=== PATIENT | male | born 1950 ===

== ENCOUNTER 2017-11-01 22:41 | Inpatient (IN) ==
--- NOTE | 2017-11-01 22:54 | Emergency Department Note ---
Disposition Clinical Impression: Sepsis Qualifiers: Sepsis type: sepsis due to unspecified organism Qualified Code(s): A41.9 - Sepsis, unspecified organism Disposition: Admitted As Inpatient Condition: Fair [facility]: [facility]Primary Care Provider[facility] - General Adult HPI - General Stated complaint: Septic Time Seen by Provider: 11/01/17 22:47 Nursing Notes Reviewed: Yes Vital Signs Reviewed: Yes - History of Present Illness HPI Narrative: Mr. Giles, a 67-year-old male, presents from the [facility] inpatient worsening physician is concerned about hypothermia and mental status changes. 3 hours prior to arrival, patient was in normal mentation. On reexamination at the [facility], he was scribed is nonverbal, somnolent, rectal temperature of 92. Sitting physician noted he is unable to perform any lab work and is concerned about patient's overall status. - Related Data Home Medications Medication Instructions Recorded Confirmed Adults 50+ Multivitamin Tablet PO DAILY 11/02/17 Alendronate Sodium 70 mg PO QWEEK 11/02/17 11/02/17 Aspirin 81 mg PO DAILY 11/02/17 11/02/17 Atorvastatin 100 mg PO HS 11/02/17 11/02/17 Glucophage 500 mg PO BID 11/02/17 11/02/17 Insulin Glargine 20 units SQ HS 11/02/17 11/02/17 Lisinopril 10 mg PO DAILY 11/02/17 11/02/17 Magnesium Oxide 400 mg PO DAILY 11/02/17 11/02/17 Pantoprazole 40 mg PO DAILY 11/02/17 11/02/17 Prazosin 2 mg PO HS 11/02/17 11/02/17 Propranolol 20 mg PO BID 11/02/17 11/02/17 Quetiapine Fumarate 25 mg PO HS 11/02/17 11/02/17 Vitamin D 2,000 units PO DAILY 11/02/17 11/02/17 amLODIPine 10 mg PO DAILY 11/02/17 11/02/17 traZODone 75 mg PO HS 11/02/17 11/02/17 Allergies Allergy/AdvReac Type Severity Reaction Status Date / Time adhesive AdvReac Rash Verified 11/02/17 00:15 Limitations: ROS unobtainable due to patients medical condition Course Course Narrative: 22:50 ED [facility]: reason for respit care per AOD is that the patient's POA (daugher) "needed a break." Patient was slated for discharge home tomorrow. I took the physician to physican call from the inpatient [facility] physician. His concern was sepsis as the patient had a change in mentation and rectal temp of 92 deg. He was unable to perform any lab work at night thus the reason for transfer from [facility] inpatient to this ED. On arrival, patient is sleeping with open mouth. He was easily roused, is oriented to self. He has no complaints at this time. EKG dated 11/01/17 at 22:51 interpreted as sinus rhythm with a rate of 63. Prolonged ND of 249 ms; first-degree AV block. Otherwise normal intervals. Normal axis. Nonspecific ST-T changes. Compared to previous dated 05/05/2007 show no acute ischemic changes or comparison. Chart check for the [facility]: Aspiration precaution, history dysphagia on pureed and honey thick liquids. Medications given by crush and swallow applesauce bolus. Next History MRSA per cultures of [facility] on 03/05/17 per [facility]. 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 [phone] Patient symmetry improving on the Amina hugger. His mentation has improved; he is asking for Tylenol for his leg pain which is chronic. Patient has no leukocytosis or leukocytopenia. Urinalysis was a Whitfield catheter drawn sample; large leukocyte esterase with many WBC. Will empirocally cover for UTI. Patient re-assess after his temperature improved and he was more able to answer questions. His abdominal pain is diffuse, most prominent in LUQ and LLQ. Stool culture pending. We will CT abdomen and pelvis without contrast. I discussed the patient with the admitting hospitalist, Dr. Lawrence. She agrees to accept the patient with CT abdomen and pelvis without contrast pending. I attempted to call the patient's niece; no answer at the provided phone number. She is aware the patient is here however a posterior and update her. Patient's code status is not clear from [facility] documentation. Vital Signs Temperature 91.6 F L 11/01/17 22:42 Pulse Rate 71 11/01/17 22:42 Respiratory Rate 16 11/01/17 22:42 Blood Pressure 124/99 11/01/17 22:42 O2 Sat by Pulse Oximetry 95 11/01/17 22:42 Temperature 93.3 F L 11/02/17 01:14 Pulse Rate 73 11/02/17 02:00 Respiratory Rate 20 11/02/17 02:00 Blood Pressure 118/65 11/02/17 02:00 O2 Sat by Pulse Oximetry 96 11/02/17 02:00 Oxygen Delivery Oxygen Delivery Room Air Medical Decision Making - Lab Data Result diagrams: 11/01/17 22:57 11/01/17 22:57 Lab Results 11/01/17 11/01/17 11/01/17 Range/Units 22:57 22:57 22:57 WBC 5.4 (4.3-11.1) K/mcL RBC 3.29 L (4.19-5.50) M/mcL Hgb 9.7 L (12.9-16.9) g/dL Hct 30.4 L (37.5-50.1) % MCV 92.4 (83.0-100.0) fL MCH 29.5 (28.0-33.3) pg MCHC 31.9 (31.6-35.5) g/dL RDW 16.7 H (11.5-14.5) % Plt Count 69 L (140-400) K/mcL MPV 10.7 (9.4-12.4) fL Immature Gran % 0.2 (0-4) % Seg Neutrophils % 64.4 % Lymphocytes % 25.0 % Monocytes % 8.5 % Eosinophils % 1.7 % Basophils % 0.2 % Neutrophils # 3.5 (1.6-8.9) K/mcL Lymphocytes # 1.4 (0.6-4.6) K/mcL Monocytes # 0.5 (0.0-1.3) K/mcL Eosinophils # 0.1 (0.0-0.6) K/mcL Basophils # 0.0 (0.0-0.2) K/mcL Sodium 142 (136-145) mEq/L Potassium 5.4 H (3.5-5.1) mEq/L Chloride 110 H (98-107) mEq/L Carbon Dioxide 25 (23-29) mEq/L BUN 42 H (8-23) mg/dL Creatinine 1.28 (0.70-1.30) mg/dL Est GFR ( Amer) > 60 (> 60) Est GFR (Non-Af Amer) 56 L (> 60) BUN/Creatinine Ratio 33 H (6-26) Glucose 179 H (70-105) mg/dL Calculated Osmolality 309 H (280-300) Lactic Acid 1.4 (0.5-2.2) mmol/L Calcium 9.9 (8.6-10.3) mg/dL Phosphorus 3.8 (2.7-4.5) mg/dL Magnesium 2.0 (1.6-2.6) mg/dL Total Bilirubin 0.4 (0.3-1.0) mg/dL Direct Bilirubin 0.1 (0.0-0.2) mg/dL Indirect Bilirubin 0.3 (0.0-1.2) mg/dL AST 38 (13-39) Units/L ALT 37 (7-52) Units/L Alkaline Phosphatase 96 (34-104) Units/L Troponin I < 0.03 (< 0.04) ng/mL Serum Total Protein 7.2 (6.4-8.9) g/dL Albumin 3.9 (3.5-5.7) g/dL Globulin 3.3 (2.4-3.5) g/dL Albumin/Globulin Ratio 1.2 (1.1-2.2) Lipase 59 (11-82) Units/L Urine Color (Yellow) Urine Clarity (Clear) Urine pH (5.0-8.0) pH Units Ur Specific [place] (1.010-1.025) Urine Protein (Neg-Trace) mg/dL Urine Glucose (UA) (Normal) mg/dL Urine Ketones (Negative) mg/dL Urine Blood (Negative) Urine Nitrite (Negative) Urine Bilirubin (Negative) Urine Urobilinogen (Normal) mg/dL Ur Leukocyte Esterase (Negative) Urine Microscopic RBC (0-3) per hpf Urine Microscopic WBC (0-3) per hpf Ur Squamous Epith Cells (None-Few) per lpf Urine Bacteria (None-Few) per hpf Hyaline Casts (None-Few) per lpf Ur Culture Indicated? (NO) 11/01/17 Range/Units 23:08 WBC (4.3-11.1) K/mcL RBC (4.19-5.50) M/mcL Hgb (12.9-16.9) g/dL Hct (37.5-50.1) % MCV (83.0-100.0) fL MCH (28.0-33.3) pg MCHC (31.6-35.5) g/dL RDW (11.5-14.5) % Plt Count (140-400) K/mcL MPV (9.4-12.4) fL Immature Gran % (0-4) % Seg Neutrophils % % Lymphocytes % % Monocytes % % Eosinophils % % Basophils % % Neutrophils # (1.6-8.9) K/mcL Lymphocytes # (0.6-4.6) K/mcL Monocytes # (0.0-1.3) K/mcL Eosinophils # (0.0-0.6) K/mcL Basophils # (0.0-0.2) K/mcL Sodium (136-145) mEq/L Potassium (3.5-5.1) mEq/L Chloride (98-107) mEq/L Carbon Dioxide (23-29) mEq/L BUN (8-23) mg/dL Creatinine (0.70-1.30) mg/dL Est GFR ( Amer) (> 60) Est GFR (Non-Af Amer) (> 60) BUN/Creatinine Ratio (6-26) Glucose (70-105) mg/dL Calculated Osmolality (280-300) Lactic Acid (0.5-2.2) mmol/L Calcium (8.6-10.3) mg/dL Phosphorus (2.7-4.5) mg/dL Magnesium (1.6-2.6) mg/dL Total Bilirubin (0.3-1.0) mg/dL Direct Bilirubin (0.0-0.2) mg/dL Indirect Bilirubin (0.0-1.2) mg/dL AST (13-39) Units/L ALT (7-52) Units/L Alkaline Phosphatase (34-104) Units/L Troponin I (< 0.04) ng/mL Serum Total Protein (6.4-8.9) g/dL Albumin (3.5-5.7) g/dL Globulin (2.4-3.5) g/dL Albumin/Globulin Ratio (1.1-2.2) Lipase (11-82) Units/L Urine Color Yellow (Yellow) Urine Clarity Turbid A (Clear) Urine pH 6.5 (5.0-8.0) pH Units Ur Specific [place] 1.018 (1.010-1.025) Urine Protein Trace (Neg-Trace) mg/dL Urine Glucose (UA) Normal (Normal) mg/dL Urine Ketones Negative (Negative) mg/dL Urine Blood Small H (Negative) Urine Nitrite Negative (Negative) Urine Bilirubin Negative (Negative) Urine Urobilinogen Normal (Normal) mg/dL Ur Leukocyte Esterase Large H (Negative) Urine Microscopic RBC 5-15 H (0-3) per hpf Urine Microscopic WBC TNTC H (0-3) per hpf Ur Squamous Epith Cells None Seen (None-Few) per lpf Urine Bacteria Few (None-Few) per hpf Hyaline Casts None Seen (None-Few) per lpf Ur Culture Indicated? YES A (NO)
--- NOTE | 2017-11-01 23:09 | Emergency Department Note ---
Disposition Clinical Impression: Sepsis Qualifiers: Sepsis type: sepsis due to unspecified organism Qualified Code(s): A41.9 - Sepsis, unspecified organism Disposition: Admitted As Inpatient Condition: Fair [facility]errals: [facility] [Primary Care Provider[facility] - General Adult HPI - General Chief complaint: ED Weakness Stated complaint: Septic Time Seen by Provider: 11/01/17 22:47 Source: EMS Limitations: altered mental status - History of Present Illness Pain Scale: 0 Past Medical History - Past Medical History Medical history: Reports: dementia, diabetes, hepatitis, hyperlipidemia, hypertension Psychiatric history: Reports: PTSD, schizophrenia - Social History Smoking Status: Former smoker Smokeless Tobacco Status: No Alcohol use: Reports: none Drug use: Reports: none Physical Exam - General Limitations: altered mental status General appearance: lethargic Course - Reevaluation(s) Reevaluation #1: Attestation note I examined this patient and my medical decision-making was reviewed with the emergency medicine resident. I agree with the documented findings, disposition and treatment plan as described except to the extent set forth below. Patient seen with emergency medicine resident Dr. Mario Danielson, Please see a copy of his note for details of the H&P, ED evaluation, management and disposition. I have independently evaluated the patient and confirmed appropriate portions of the history and physical exam. Briefly: 67-year-old male for respite care at the [facility] transferred for acute change of mental status. Patient arrives somnolent dry oral mucosa patient is normally awake and alert ambulatory and appropriate. This had rectal temperature was [address] [facility] Patient will undergo septic workup with admission. Providing 45 minutes critical care service for this patient. Disposition pending. Time: 23:07 Vital Signs Temperature 91.6 F L 11/01/17 22:42 Pulse Rate 71 11/01/17 22:42 Respiratory Rate 16 11/01/17 22:42 Blood Pressure 124/99 11/01/17 22:42 O2 Sat by Pulse Oximetry 95 11/01/17 22:42 Temperature 91.6 F L 11/01/17 22:42 Pulse Rate 60 11/01/17 23:00 Respiratory Rate 16 11/01/17 23:00 Blood Pressure 119/68 11/01/17 23:00 O2 Sat by Pulse Oximetry 97 11/01/17 23:00 Oxygen Delivery Oxygen Delivery Room Air
[2017-11-01 23:12] LABS: Basophils % 0.2 %; Eosinophils # 0.1 K/mcL (0.0-0.6); Eosinophils % 1.7 %; Hematocrit 30.4 % (37.5-50.1); Hemoglobin 9.7 g/dL (12.9-16.9); Immature Granulocytes % 0.2 % (0-4); Lymphocytes # 1.4 K/mcL (0.6-4.6); Mean Corpuscular HGB Conc 31.9 g/dL (31.6-35.5); Mean Corpuscular Hemoglobin 29.5 pg (28.0-33.3); Mean Corpuscular Volume 92.4 fL (83.0-100.0); Mean Platelet Volume 10.7 fL (9.4-12.4); Monocytes # 0.5 K/mcL (0.0-1.3); Monocytes % 8.5 %; Neutrophils # 3.5 K/mcL (1.6-8.9); Red Blood Count 3.29 M/mcL (4.19-5.50); Red Cell Distribution Width 16.7 % (11.5-14.5); Segmented Neutrophils % 64.4 %
[2017-11-01 23:13] LABS: Platelet Count 69 K/mcL (140-400)
[2017-11-01 23:17] LABS: Bilirubin,Urine Negative (Negative); Blood,Urine Small (Negative); Clarity,Urine Turbid (Clear); Color,Urine Yellow (Yellow); Glucose,Urine (UA) Normal (Normal); Ketones,Urine Negative (Negative); Leukocyte Esterase,Urine Large (Negative); Nitrite,Urine Negative (Negative); PH,Urine 6.5 pH Units (5.0-8.0); Protein,Urine Trace mg/dL (Neg-Trace); Specific Gravity,Urine 1.018 (1.010-1.025); Urobilinogen,Urine Normal (Normal)
[2017-11-01 23:18] LABS: Bacteria,Urine Few per hpf (None-Few); Hyaline Casts,Urine None Seen per lpf (None-Few); Squamous Epithelial Cell,Urine None Seen per lpf (None-Few); WBC,Urine TNTC per hpf (0-3)
[2017-11-01 23:33] LABS: Alanine Aminotransferase 37 Units/L (7-52); Albumin 3.9 g/dL (3.5-5.7); Albumin/Globulin Ratio 1.2 (1.1-2.2); Alkaline Phosphatase 96 Units/L (34-104); Aspartate Amino Transferase 38 Units/L (13-39); BUN/Creatinine Ratio 33 (6-26); Bilirubin,Direct 0.1 mg/dL (0.0-0.2); Bilirubin,Indirect 0.3 mg/dL (0.0-1.2); Bilirubin,Total 0.4 mg/dL (0.3-1.0); Blood Urea Nitrogen 42 mg/dL (8-23); Calcium 9.9 mg/dL (8.6-10.3); Carbon Dioxide 25 mEq/L (23-29); Chloride 110 mEq/L (98-107); Globulin 3.3 g/dL (2.4-3.5); Glucose 179 mg/dL (70-105); Lipase 59 Units/L (11-82); Osmolality,Calculated 309 (280-300); Phosphorous 3.8 mg/dL (2.7-4.5); Potassium 5.4 mEq/L (3.5-5.1); Sodium 142 mEq/L (136-145); Total Protein 7.2 g/dL (6.4-8.9); Troponin I < 0.03 ng/mL (< 0.04); eGFR For African Americans > 60 (> 60); eGFR For Non-African Americans 56 (> 60)
[2017-11-02] MEDS ORDERED: 0.9 % Sodium Chloride 1,000 ML IVC ONE ×2 (00:16→00:17)
[2017-11-02] MEDS ORDERED: Acetaminophen 325 MG TABLET PO ONE (01:02)
[2017-11-02] MEDS ORDERED: Dextrose Gel 15 GM/37.5 ML TUBE PO PRN ×2 (04:16)
[2017-11-02] MEDS ORDERED: D5% in Water 1,000 ML IVC PRN (04:16)
[2017-11-02] MEDS ORDERED: *HR* Dextrose 50 % in Water (Syg) 50 ML SYRINGE IVP PRN (04:16)
[2017-11-02] MEDS ORDERED: Naloxone 0.4 MG/ML INJ IVP PRN (04:17)
--- NOTE | 2017-11-02 04:24 | Internal Med History&Physical ---
Date of Encounter: 11/02/17 Time of Encounter: 03:00 Internal Medicine - H&P: HPI Chief complaint: Altered mentation Admitted From: Emergency Dept Plans for Post Hospital Care: Home History of present illness: Mr. Giles is a 67 year old male with history of dementia, CVA, DM2, HTN and schizophrenia who presented to the ED from the [facility] this evening because of altered mentation and hypothermia. He was reportedly admitted to the [facility] for respite care and was supposed to go home, however he was found to be somnolent and was found to have rectal temp of 92 degrees F. Given concern for sepsis and inability for [facility] to obtain labs in the night he was transferred to [facility] for further workup. In the ED he was found to have rectal temp of 92. Patient sleepy but does wake to vocal stimulus, wakes easier as temp improves with issac hugger. Past Med Surg Social Fam HX - Past Medical History Medical history: dementia, diabetes, hepatitis, hyperlipidemia, hypertension Psychiatric history: PTSD, schizophrenia - Social History Smoking Status: Former smoker Smokeless Tobacco Status: No Alcohol use: none Drug use: none - Additional Family History Additional family history: Unable to obtain family history secondary to altered mentation Internal Medicine - H&P: Meds Adults 50+ Multivitamin Tablet PO DAILY 11/02/17 [History] Alendronate Sodium 70 mg PO QWEEK 11/02/17 [History] Aspirin 81 mg PO DAILY 11/02/17 [History] Atorvastatin 10 mg PO HS 11/02/17 [History] Glucophage 500 mg PO BID 11/02/17 [History] Insulin Glargine 20 units SQ HS 11/02/17 [History] Lisinopril 10 mg PO DAILY 11/02/17 [History] Magnesium Oxide 400 mg PO DAILY 11/02/17 [History] Pantoprazole 40 mg PO DAILY 11/02/17 [History] Prazosin 2 mg PO HS 11/02/17 [History] Propranolol 20 mg PO BID 11/02/17 [History] Quetiapine Fumarate 25 mg PO HS 11/02/17 [History] Vitamin D 2,000 units PO DAILY 11/02/17 [History] amLODIPine 10 mg PO DAILY 11/02/17 [History] traZODone 75 mg PO HS 11/02/17 [History] 3 Allergy/AdvReac Type Severity Reaction Status Date / Time adhesive AdvReac Rash Verified 11/02/17 00:15 ROS unobtainable: due to mental status All Systems PM: A 10-system review of systems was performed and is negative for pertinent findings except as documented above in the HPI. - Constitutional Vitals: Temp Pulse Resp BP Pulse Ox 96.5 F L 77 17 115/96 94 11/02/17 03:28 11/02/17 03:28 11/02/17 03:28 11/02/17 03:28 11/02/17 03:28 General appearance: Present: A&O X 1, no acute distress - Head Head exam: Present: atraumatic - Eye Eye exam: Present: EOMI, sclera anicteric - ENT ENT exam: Present: mucous membranes dry - Neck Neck exam general surgery: Present: supple - Respiratory Respiratory exam: Present: CTAB - Cardiovascular Cardiovascular exam: Present: RRR. Absent: diastolic murmur, gallop, rubs, systolic murmur - GI/Abdominal GI/Abdominal exam: Present: normal bowel sounds, soft, tenderness (Tender LUQ and LLQ) - Extremities Exam Extremities exam: Absent: pedal edema - Neurological Exam Neurological exam: Present: no focal deficits - Skin Skin exam: Absent: rash Internal Med - H&P Results - Labs CBC & Chem 7: 11/01/17 22:57 11/01/17 22:57 - Assessment and plan (1) Sepsis Current Visit: Yes Status: Acute Assessment and plan: Likely related to UTI or proctocolitis, also concern for possible aspiration pneumonia on CT. Temp 92. WBC WNL. - Zosyn will cover UTI, colitis and aspiration pneumonia - Blood cultures pending - Nii pate for hypothermia Qualifiers: Qualified Code(s): A41.9 - Sepsis, unspecified organism (2) UTI (urinary tract infection) Current Visit: Yes Status: Acute Assessment and plan: No known history of ESBL-producing organisms. - Culture pending - Zosyn for coverage of both proctitis as well as UTI Qualifiers: Urinary tract infection type: acute cystitis Hematuria presence: with hematuria Qualified Code(s): N30.01 - Acute cystitis with hematuria (3) Proctitis Current Visit: Yes Status: Acute Assessment and plan: Described as stercoral proctitis on CT abdomen/pelvis. - Manual disimpaction ordered - Patient will need bowel regimen once fecal blockage is resolved (4) Diabetes Current Visit: Yes Status: Acute Assessment and plan: Hold home metformin. Continue home long-acting insulin. - Add SSI while admitted to hospital Qualifiers: Diabetes mellitus type: type 2 Diabetes mellitus custodial insulin use: with custodial use Diabetes mellitus complication status: with unspecified complications Qualified Code(s): E11.8 - Type 2 diabetes mellitus with unspecified complications; Z79.4 - computer terminal operator (current) use of insulin; Z79.4 - computer terminal operator (current) use of insulin; Z79.4 - longterm (current) use of insulin; Z79.4 - computer terminal operator (current) use of insulin (5) Schizophrenia Current Visit: Yes Status: Acute Assessment and plan: Continue home seroquel Qualifiers: Schizophrenia type: unspecified Qualified Code(s): F20.9 - Schizophrenia, unspecified (6) Encephalopathy acute Current Visit: Yes Status: Acute Assessment and plan: Secondary to sepsis, compounded by history of dementia and schizophrenia. - Treat UTI/proctitis as above - Monitor for improvement (7) Thrombocytopenia Current Visit: Yes Status: Acute Assessment and plan: Unknown chronicity, no previous labs at this facility. - Check AM CBC, consider requesting outside records for further information on baseline platelet level - Time Spent With Patient Total time spent is greater than 50% in coordination of care (as documented) at patient's floor/unit and/or counseling patient:
[2017-11-02] MEDS: Insulin LISPRO 300 UNITS/3 ML VIAL SQ SCH ×3 (07:53→18:04)
[2017-11-02] MEDS ORDERED: Piperacillin/Tazobactam 3.375 GM in 0.9 % Sodium Chloride Mini Bag 100 ML IVPB SCH (08:00)
--- NOTE | 2017-11-02 10:39 | Internal Med Progress Note ---
Date of Encounter: 11/02/17 Time of Encounter: 10:36 - Assessment and plan (1) Encephalopathy acute Current Visit: Yes Status: Acute Assessment and plan: Acute metabolic encephalopathy Secondary to UTI, acute stercoral proctitis and possible aspiration pneumonia present upon admission, compounded by history of dementia and schizophrenia. . Temp 92. WBC WNL. - Discontinue Zosyn and start Levaquin and Flagyl IV will cover UTI, colitis and aspiration pneumonia - Blood cultures pending - Bear hugger for hypothermia CT scan of the abdomen showed:Large rectal stool ball with features raising suspicion for stercoral proctitis. No evidence of pneumoperitoneum. Circumferential urinary bladder wall thickening under proportion for degree of underdistention. Nondependent gas is presumably related to Whitfield catheter placement however cannot exclude superinfection. Correlate with urinalysis. Bilateral nonobstructive nephrolithiasis. Advanced emphysema at the lung bases with superimposed bibasilar airspace disease, suspicious for aspiration sequela. Pneumonia would be a differential consideration. Suspect tiny gallstone in the region of the cystic duct. No evidence of cholecystitis. Nonspecific retroperitoneal lymphadenopathy, presumably reactive though underlying lymphoproliferative process cannot be excluded. Comparison imaging would be helpful if available. Otherwise recommend follow-up CT in three months. (2) UTI (urinary tract infection) Current Visit: Yes Status: Acute Assessment and plan: No known history of ESBL-producing organisms. - Culture pending Qualifiers: Urinary tract infection type: acute cystitis Hematuria presence: with hematuria Qualified Code(s): N30.01 - Acute cystitis with hematuria (3) Proctitis Current Visit: Yes Status: Acute Assessment and plan: Described as stercoral proctitis on CT abdomen/pelvis. - Manual disimpaction ordered, tapwater enemas - Patient will need bowel regimen once fecal blockage is resolved (4) Diabetes Current Visit: Yes Status: Acute Assessment and plan: Hold home metformin. Continue home long-acting insulin. - SSI while admitted to hospital Qualifiers: Diabetes mellitus type: type 2 Diabetes mellitus terminal operations supervisor insulin use: with chcf use Diabetes mellitus complication status: with unspecified complications Qualified Code(s): E11.8 - Type 2 diabetes mellitus with unspecified complications; Z79.4 - custodial (current) use of insulin; Z79.4 - custodial (current) use of insulin; Z79.4 - terminal superintendent (current) use of insulin; Z79.4 - custodial (current) use of insulin (5) Schizophrenia Current Visit: Yes Status: Acute Assessment and plan: Continue home seroquel Qualifiers: Schizophrenia type: unspecified Qualified Code(s): F20.9 - Schizophrenia, unspecified (6) Thrombocytopenia Current Visit: Yes Status: Acute Assessment and plan: Unknown chronicity, no previous labs at this facility. - Monitor CBC (7) Hyperkalemia Current Visit: Yes Status: Acute Assessment and plan: Start IV fluids and order 1 dose of Kayexalate - Time Spent With Patient Total time spent is greater than 50% in coordination of care (as documented) at patient's floor/unit and/or counseling patient: - Subjective Interval history: Confused, appears to be in no distress, unable to provide history - Constitutional Vitals: Temp Pulse Resp BP Pulse Ox 98.9 F 92 14 115/56 92 11/02/17 07:02 11/02/17 07:02 11/02/17 07:02 11/02/17 07:02 11/02/17 09:42 General appearance: Present: A&O X 1, no acute distress - Head Head exam: Present: atraumatic, normocephalic - Eye Eye exam: Present: PERRL, conjuntiva pink, sclera anicteric Pupils: Present: PERRL - Neck Neck exam general surgery: Present: supple, trachea midline. Absent: lymphadenopathy - Respiratory Respiratory exam: Present: decreased breath sounds, CTAB. Absent: accessory muscle use, rales, rhonchi, wheezes - Cardiovascular Cardiovascular exam: Present: RRR, +S1, +S2. Absent: diastolic murmur, gallop, rubs, systolic murmur - GI/Abdominal GI/Abdominal exam: Present: normal bowel sounds, soft, no peritoneal signs. Absent: distended, tenderness - Extremities Exam Extremities exam: Present: warm, radial pulses palpable and symmetrical. Absent : calf tenderness, cyanotic, pedal edema - Neurological Exam Neurological exam: Present: CN II-XII intact, no focal deficits. Absent: oriented X3, pronater drift, facial droop, speech deficit - Skin Skin exam: Present: dry, intact Internal Medicine: Result - Labs CBC & Chem 7: 11/01/17 22:57 11/01/17 22:57 Labs: Cardiac Enzymes 11/02/17 Range/Units 05:28 Troponin I < 0.03 (< 0.04) ng/mL Consult Discharge Plan - Plan
[2017-11-02] MEDS: Levofloxacin 750 MG/150 ML 750 MG/150 ML BAG IVPB SCH (12:41)
[2017-11-02] MEDS: MetroNIDAZOLE 500 MG/100 ML 500 MG/100 ML BAG IVPB SCH ×2 (12:41→17:15)
[2017-11-02] MEDS: Aspirin 81 MG TAB.CHEW PO SCH (14:07)
[2017-11-02] MEDS: Cholecalciferol (D-3) 1,000 UNIT TABLET PO SCH (14:08)
[2017-11-02] MEDS: amLODIPine 5 MG TABLET PO SCH (14:08)
[2017-11-02] MEDS: Magnesium Oxide 400 MG TABLET PO SCH (14:08)
[2017-11-02 17:43] LABS: Troponin I < 0.03 ng/mL (< 0.04)
[2017-11-02] MEDS: traZODone 50 MG TABLET PO SCH (20:59)
[2017-11-02] MEDS ORDERED: INSULIN GLARGINE 20 UNIT SQ SCH (21:00)
[2017-11-02] MEDS: Insulin DETEMIR 100 UNIT/ML X5UNITS SQ SCH (21:00)
[2017-11-02 22:24] LABS: Thyroid Stimulating Hormone 11.535 mcIU/mL (0.340-5.600)
[2017-11-03 01:29] LABS: Basophils % 0.2 %; Eosinophils # 0.1 K/mcL (0.0-0.6); Eosinophils % 2.4 %; Hematocrit 26.4 % (37.5-50.1); Immature Granulocytes % 0.2 % (0-4); Lymphocytes # 1.7 K/mcL (0.6-4.6); Lymphocytes % 28.9 %; Mean Corpuscular HGB Conc 31.4 g/dL (31.6-35.5); Mean Corpuscular Hemoglobin 29.4 pg (28.0-33.3); Mean Corpuscular Volume 93.6 fL (83.0-100.0); Monocytes # 0.6 K/mcL (0.0-1.3); Monocytes % 9.5 %; Neutrophils # 3.5 K/mcL (1.6-8.9); Red Blood Count 2.82 M/mcL (4.19-5.50); Red Cell Distribution Width 16.9 % (11.5-14.5); Segmented Neutrophils % 58.8 %
[2017-11-03 01:31] LABS: Hemoglobin 8.3 g/dL (12.9-16.9); Platelet Count 69 K/mcL (140-400)
[2017-11-03 02:25] LABS: BUN/Creatinine Ratio 29 (6-26); Blood Urea Nitrogen 34 mg/dL (8-23); Calcium 8.8 mg/dL (8.6-10.3); Carbon Dioxide 20 mEq/L (23-29); Chloride 116 mEq/L (98-107); Glucose 119 mg/dL (70-105); Osmolality,Calculated 307 (280-300); Potassium 4.8 mEq/L (3.5-5.1); Sodium 144 mEq/L (136-145); eGFR For African Americans > 60 (> 60); eGFR For Non-African Americans > 60 (> 60)
[2017-11-03] MEDS: MetroNIDAZOLE 500 MG/100 ML 500 MG/100 ML BAG IVPB SCH ×3 (05:40→15:52)
[2017-11-03] MEDS: Insulin LISPRO 300 UNITS/3 ML VIAL SQ SCH ×3 (08:05→17:13)
[2017-11-03] MEDS: Cholecalciferol (D-3) 1,000 UNIT TABLET PO SCH (08:09)
[2017-11-03] MEDS: Magnesium Oxide 400 MG TABLET PO SCH (08:09)
[2017-11-03] MEDS: Aspirin 81 MG TAB.CHEW PO SCH (08:10)
[2017-11-03] MEDS: amLODIPine 5 MG TABLET PO SCH (08:10)
[2017-11-03] MEDS: Levofloxacin 750 MG/150 ML 750 MG/150 ML BAG IVPB SCH (08:10)
--- NOTE | 2017-11-03 09:30 | Internal Med Progress Note ---
<James Chino - Last Filed: 11/03/17 10:17> Date of Encounter: 11/03/17 Time of Encounter: 09:28 - Assessment and plan (1) UTI (urinary tract infection) Current Visit: Yes Status: Acute Assessment and plan: No known history of ESBL-producing organisms. U/A was positive for WBC, Leuk. On admission patient had hypothermia 91.6F rectally, was given bearhugger. Patient currently is afebrile, no leukocytosis, normotensive, normal HR, and normal BP. Patient was non-responsive, somnolent and unable to take verbal command. Patient is alert but is not oriented to Person, place, or time. - Culture positive for enterococcus species - preliminary - Day 2 of levaquin and metronidazole - closely follow vitals and leuks, patient is high risk Qualifiers: Urinary tract infection type: acute cystitis Hematuria presence: with hematuria Qualified Code(s): N30.01 - Acute cystitis with hematuria (2) Proctitis Current Visit: Yes Status: Acute Assessment and plan: Described as stercoral proctitis on CT abdomen/pelvis. Had bowel movement yesterday after receiving Kayexelate - Manual disimpaction ordered, tapwater enemas - started patient on Senna Plus (3) Diabetes Current Visit: Yes Status: Acute Assessment and plan: Hold home metformin. Ct. 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 insulin use: with termite control service representative use Diabetes mellitus complication status: with unspecified complications Qualified Code(s): E11.8 - Type 2 diabetes mellitus with unspecified complications; Z79.4 - [facility] (current) use of insulin; Z79.4 - [facility] (current) use of insulin; Z79.4 - [facility] (current) use of insulin; Z79.4 - [facility] (current) use of insulin (4) Schizophrenia Current Visit: Yes Status: Acute Assessment and plan: Continue home seroquel Qualifiers: Schizophrenia type: unspecified Qualified Code(s): F20.9 - Schizophrenia, unspecified (5) Encephalopathy acute Current Visit: Yes Status: Acute Assessment and plan: Acute metabolic encephalopathy Secondary to UTI, acute stercoral proctitis and possible aspiration pneumonia present upon admission, compounded by history of dementia and schizophrenia. Patient is no longer somnolent, but remains confused. He is responsive to verbal commands. U/A was positive for Leuk, and WBC. Urine Cx was positive for enterococcus - preliminary. will make recommendations based off of final report and sensitivities. CT scan of the abd showed large rectal stool. Patient had manual disimpaction this past weekend, and had a bowel movement after receiving lactulose. Advanced emphysema at lung bases w/ superimposed bibasilar airspace disease suspicious. head ct - negative for acute intracranial abnormlaities. - will adjust abx coverage based on final report and sensitivity. - ct Bear hugger for hypothermia - continue toribio cath - serial mental status exams. (6) Thrombocytopenia Current Visit: Yes Status: Acute Assessment and plan: Unknown chronicity, no previous labs at this facility. remains stable today at 67 - Monitor CBC (7) Hyperkalemia Current Visit: Yes Status: Acute Assessment and plan: Pt was started on IVF and given a dose of kayexalate. Currently resolved. - Time Spent With Patient Total time spent is greater than 50% in coordination of care (as documented) at patient's floor/unit and/or counseling patient: - Subjective Interval history: Mr. Giles is a 67 year old male with history of dementia, CVA, DM2, HTN and schizophrenia. Patient was transferred from [place] to [place] due to AMS and hypothermia. Patient is seen and examined. Patient is awake and verbally responsive, but no history was obtainable due to mental status. - Constitutional Vitals: Temp Pulse Resp BP Pulse Ox 97.5 F L 74 16 119/61 89 11/03/17 07:22 11/03/17 07:22 11/03/17 07:22 11/03/17 07:22 11/03/17 07:22 General appearance: Present: A&O X 0, cooperative, no acute distress Exam: Patient was responded to verbal commands - Head Head exam: Present: atraumatic, normocephalic - Eye Eye exam: Present: PERRL, conjuntiva pink, sclera anicteric Pupils: Present: PERRL - ENT ENT exam: Present: mucous membranes dry - Neck Neck exam general surgery: Present: supple, trachea midline. Absent: lymphadenopathy, tenderness, thyromegaly - Respiratory Respiratory exam: Present: decreased breath sounds, prolonged expiratory phase, wheezes - Cardiovascular Cardiovascular exam: Present: distant heart sounds, RRR - GI/Abdominal GI/Abdominal exam: Present: hypoactive bowel sounds, soft. Absent: distended, firm, guarding, rebound, rigid - Extremities Exam Extremities exam: Absent: pedal edema, tenderness - Neurological Exam Neurological exam: Present: alert. Absent: oriented X3 Additional comments: unable to do neuro exam due to patient's inability to follow commands Internal Medicine: Result - Labs CBC & Chem 7: 11/03/17 00:52 11/03/17 00:52 Labs: Short CBC 11/03/17 Range/Units 00:52 WBC 5.9 (4.3-11.1) K/mcL Hgb 8.3 L (12.9-16.9) g/dL Hct 26.4 L (37.5-50.1) % Plt Count 69 L (140-400) K/mcL Neutrophils # 3.5 (1.6-8.9) K/mcL BMP 11/03/17 00:52 Sodium 144 Potassium 4.8 Chloride 116 H Carbon Dioxide 20 L BUN 34 H Creatinine 1.18 Glucose 119 H Calcium 8.8 Cardiac Enzymes 11/02/17 11/02/17 Range/Units 11:05 16:33 Troponin I < 0.03 < 0.03 (< 0.04) ng/mL - VTE Documentation of Mechanical Device: Intermittent pneumatic compression device Consult Discharge Plan - Plan [facility]errals: [facility]Primary Care Provider[facility] - <Wei Ariza H - Last Filed: 11/03/17 10:24> Date of Encounter: 11/03/17 - Assessment and plan (1) UTI (urinary tract infection) Current Visit: Yes Status: Acute Qualifiers: Urinary tract infection type: acute cystitis Hematuria presence: with hematuria Qualified Code(s): N30.01 - Acute cystitis with hematuria (2) Proctitis Current Visit: Yes Status: Acute (3) Diabetes Current Visit: Yes Status: Acute Qualifiers: Diabetes mellitus type: type 2 Diabetes mellitus termite control service representative insulin use: with termite control service representative use Diabetes mellitus complication status: with unspecified complications Qualified Code(s): E11.8 - Type 2 diabetes mellitus with unspecified complications; Z79.4 - [facility] (current) use of insulin; Z79.4 - [facility] (current) use of insulin; Z79.4 - [facility] (current) use of insulin; Z79.4 - termite inspector (current) use of insulin (4) Schizophrenia Current Visit: Yes Status: Acute Qualifiers: Schizophrenia type: unspecified Qualified Code(s): F20.9 - Schizophrenia, unspecified (5) Encephalopathy acute Current Visit: Yes Status: Acute (6) Thrombocytopenia Current Visit: Yes Status: Acute (7) Hyperkalemia Current Visit: Yes Status: Acute - Time Spent With Patient Total time spent is greater than 50% in coordination of care (as documented) at patient's floor/unit and/or counseling patient: - Constitutional Vitals: Temp Pulse Resp BP Pulse Ox 97.5 F L 74 16 119/61 93 11/03/17 07:22 11/03/17 07:22 11/03/17 07:22 11/03/17 07:22 11/03/17 09:00 Internal Medicine: Result - Labs CBC & Chem 7: 11/03/17 00:52 11/03/17 00:52 Labs: Short CBC 11/03/17 Range/Units 00:52 WBC 5.9 (4.3-11.1) K/mcL Hgb 8.3 L (12.9-16.9) g/dL Hct 26.4 L (37.5-50.1) % Plt Count 69 L (140-400) K/mcL Neutrophils # 3.5 (1.6-8.9) K/mcL BMP 11/03/17 00:52 Sodium 144 Potassium 4.8 Chloride 116 H Carbon Dioxide 20 L BUN 34 H Creatinine 1.18 Glucose 119 H Calcium 8.8 Cardiac Enzymes 11/02/17 11/02/17 Range/Units 11:05 16:33 Troponin I < 0.03 < 0.03 (< 0.04) ng/mL - Attending Attestation Acute metabolic encephalopathy Secondary to UTI, acute stercoral proctitis and possible aspiration pneumonia present upon admission, compounded by history of dementia and schizophrenia. Continue Levaquin and Flagyl Urine culture growing enterococcus, Toribio catheter appears clear May switch antibiotic therapy according to the culture Severe constipation, continue enemas Hyperkalemia has resolved with Kayexalate I examined this patient and my medical decision-making was reviewed with the Resident Physician. I agree with the documented findings, disposition and treatment plan as described except to the extent set forth below.
[2017-11-03] MEDS: D5% in 0.45% NACL 1,000 ML IVC SCH (10:52)
[2017-11-03] MEDS: traZODone 50 MG TABLET PO SCH (20:49)
[2017-11-03] MEDS: Sennosides/Docusate Sodium TABLET PO SCH (20:49)
[2017-11-03] MEDS: Insulin DETEMIR 100 UNIT/ML X5UNITS SQ SCH (20:50)
[2017-11-04] MEDS: D5% in 0.45% NACL 1,000 ML IVC SCH ×2 (00:12→15:44)
[2017-11-04] MEDS: MetroNIDAZOLE 500 MG/100 ML 500 MG/100 ML BAG IVPB SCH ×3 (00:12→15:45)
[2017-11-04 05:25] LABS: Basophils % 0.2 %; Eosinophils # 0.2 K/mcL (0.0-0.6); Hematocrit 27.3 % (37.5-50.1); Hemoglobin 8.7 g/dL (12.9-16.9); Immature Granulocytes % 0.5 % (0-4); Immature Platelets 2.9 % (1.1-6.1); Lymphocytes % 35.2 %; Mean Corpuscular HGB Conc 31.9 g/dL (31.6-35.5); Mean Corpuscular Hemoglobin 29.9 pg (28.0-33.3); Mean Corpuscular Volume 93.8 fL (83.0-100.0); Mean Platelet Volume 10.7 fL (9.4-12.4); Monocytes # 0.7 K/mcL (0.0-1.3); Monocytes % 12.8 %; Neutrophils # 2.7 K/mcL (1.6-8.9); Nucleated Red Blood Cells 0.4 /100 WBC (0); Red Blood Count 2.91 M/mcL (4.19-5.50); Segmented Neutrophils % 48.3 %
[2017-11-04 05:27] LABS: Platelet Count 85 K/mcL (140-400)
[2017-11-04 05:42] LABS: Alanine Aminotransferase 28 Units/L (7-52); Albumin 3.5 g/dL (3.5-5.7); Albumin/Globulin Ratio 1.3 (1.1-2.2); Alkaline Phosphatase 69 Units/L (34-104); Aspartate Amino Transferase 33 Units/L (13-39); BUN/Creatinine Ratio 23 (6-26); Bilirubin,Total 0.4 mg/dL (0.3-1.0); Blood Urea Nitrogen 26 mg/dL (8-23); Calcium 8.7 mg/dL (8.6-10.3); Carbon Dioxide 23 mEq/L (23-29); Chloride 115 mEq/L (98-107); Globulin 2.7 g/dL (2.4-3.5); Glucose 111 mg/dL (70-105); Osmolality,Calculated 301 (280-300); Sodium 143 mEq/L (136-145); Total Protein 6.2 g/dL (6.4-8.9); eGFR For African Americans > 60 (> 60); eGFR For Non-African Americans > 60 (> 60)
--- NOTE | 2017-11-04 05:54 | Electrocardiograph Report ---
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
[2017-11-04] MEDS ORDERED: Levothyroxine 25 MCG TABLET PO SCH (06:30)
--- NOTE | 2017-11-04 08:47 | Discharge Summary ---
Date of Encounter: 11/04/17 Time of Encounter: 08:44 - Discharge Diagnosis (1) UTI (urinary tract infection) Priority: Primary Status: Acute Assessment and Plan: Acute metabolic encephalopathy Secondary to UTI, acute stercoral proctitis and possible aspiration pneumonia present upon admission, compounded by history of dementia and schizophrenia. Qualifiers: Urinary tract infection type: acute cystitis Hematuria presence: with hematuria Qualified Code(s): N30.01 - Acute cystitis with hematuria (2) Proctitis Priority: Primary Status: Acute Assessment and Plan: Described as stercoral proctitis on CT abdomen/pelvis. 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: with long-term use Diabetes mellitus complication status: with unspecified complications Qualified Code(s): E11.8 - Type 2 diabetes mellitus with unspecified complications; Z79.4 - terminal superintendent (current) use of insulin; Z79.4 - terminal superintendent (current) use of insulin; Z79.4 - [facility] (current) use of insulin; Z79.4 - [facility] (current) use of insulin (4) Schizophrenia Priority: Secondary Status: Acute Assessment and Plan: Continue home seroquel Qualifiers: Schizophrenia type: unspecified Qualified Code(s): F20.9 - Schizophrenia, unspecified (5) Encephalopathy acute Priority: Primary Status: Acute (6) Thrombocytopenia Priority: Secondary Status: Acute Assessment and Plan: unclear etiology, not worsening (7) Hyperkalemia Priority: Secondary Status: Acute Assessment and Plan: resolved after kayaxelate Hospital course: Mr. Giles is a 67 year old male with history of dementia, CVA, DM2 insulin dep , HTN, GERD, and schizophrenia who presented to the ED from the [facility] because of altered mentation and hypothermia. He was reportedly admitted to the [facility] and was supposed to go home, however he was found to be somnolent and was found to have a rectal temp of 92 degrees F. Given concern for sepsis and inability for [facility] to obtain labs in the night he was transferred to [facility] for further workup. U/A was positive for WBC, Leuk. On admission patient had hypothermia 91.6F rectally, was given bearhugger. Patient was non-responsive, somnolent and was unable to take verbal command. Was not oriented to Person, place, or time. CT scan of the abdomen showed:Large rectal stool ball with features raising suspicion for stercoral proctitis. Circumferential urinary bladder wall thickening under proportion for degree of underdistention. Nondependent gas is presumably related to Whitfield catheter placement however cannot exclude superinfection. Bilateral nonobstructive nephrolithiasis. Advanced emphysema at the lung bases with superimposed bibasilar airspace disease, suspicious for aspiration sequela. Pneumonia would be a differential consideration. Suspect tiny gallstone in the region of the cystic duct. No evidence of cholecystitis. - Urine Culture was positive for enterococcus Improved on levaquin and metronidazole and is now back to his baseline - Time Spent with Patient Total time spent providing and/or coordinating discharge services: Greater than 30 minutes (40 min) - Discharge Medications Prescriptions: Levofloxacin [Levaquin] 750 mg PO DAILY #5 tablet metroNIDAZOLE [Flagyl] 500 mg PO TID #15 tablet Polyethylene Glycol 3350 [MiraLAX] 17 gm PO DAILY 30 Days powd.pack Home Medications: Alendronate Sodium [Binosto] 70 mg PO GUEVARA 11/02/17 [History] Amlodipine Besylate 10 mg PO DAILY 11/02/17 [History] Aspirin Enteric Coated [Aspirin EC] 81 mg PO DAILY 11/02/17 [History] Atorvastatin [Lipitor] 10 mg PO HS 11/02/17 [History] Cholecalciferol (Vitamin D3) [Vitamin D3] 2,000 unit PO DAILY 11/02/17 [History] Insulin Glargine [Lantus] 20 unit SQ HS 11/02/17 [History] Lisinopril [Zestril] 10 mg PO DAILY 11/02/17 [History] Magnesium Oxide [Mag-Ox] 400 mg PO DAILY 11/02/17 [History] Multivit-Min/FA/Lycopen/Lutein [Adults 50+ Multivitamin Tablet] 1 tab PO DAILY 11/02/17 [History] Pantoprazole Sodium [Protonix] 40 mg PO DAILY 11/02/17 [History] Prazosin HCl [Minipress] 2 mg PO HS 11/02/17 [History] Propranolol [Inderal] 20 mg PO BID 11/02/17 [History] Quetiapine Fumarate [Seroquel] 25 mg PO HS 11/02/17 [History] metFORMIN [Glucophage] 500 mg PO BID 11/02/17 [History] traZODone [TraZODone] 75 mg PO HS 11/02/17 [History] Levofloxacin [Levaquin] 750 mg PO DAILY #5 tablet 11/04/17 [Rx] Levothyroxine [Synthroid] 25 mcg PO DAILY@0630 tablet 11/04/17 [Rx] Polyethylene Glycol 3350 [MiraLAX] 17 gm PO DAILY 30 Days powd.pack 11/04/17 [ Rx] Sennosides/Docusate Sodium [Senna Plus] 1 each PO BID tablet 11/04/17 [Rx] metroNIDAZOLE [Flagyl] 500 mg PO TID #15 tablet 11/04/17 [Rx] Allergies/Adverse Reactions: 3 Allergy/AdvReac Type Severity Reaction Status Date / Time adhesive AdvReac Rash Verified 11/02/17 00:15 Date of admission: 11/02/17 02:21 [facility] care physician: [facility] Consults: 11/02/17 09:39 Consult to Speech Therapy [CONS] Routine Comment: Evaluate, develop and implement POC Reason for Consult: failed dysphagia screening. Call Completed: Yes 11/03/17 11:39 Consult to Target Worker [CONS] Routine Reason for SW Consult: Possibly from [facility]? Macie aware. - Constitutional Vitals: Temp Pulse Resp BP Pulse Ox 97.4 F L 62 18 130/71 99 11/04/17 07:16 11/04/17 07:16 11/04/17 07:16 11/04/17 07:16 11/04/17 07:16 General appearance: Present: A&O X 0, cooperative, no acute distress Exam: Head Head exam: Present: atraumatic, normocephalic - Eye Eye exam: Present: PERRL, conjuntiva pink, sclera anicteric Pupils: Present: PERRL - Neck Neck exam general surgery: Present: supple, trachea midline. Absent: lymphadenopathy - Respiratory Respiratory exam: Present: decreased breath sounds, CTAB. Absent: accessory muscle use, rales, rhonchi, wheezes - Cardiovascular Cardiovascular exam: Present: RRR, +S1, +S2. Absent: diastolic murmur, gallop, rubs, systolic murmur - GI/Abdominal GI/Abdominal exam: Present: normal bowel sounds, soft, no peritoneal signs. Absent: distended, tenderness - Extremities Exam Extremities exam: Present: warm, radial pulses palpable and symmetrical. Absent : calf tenderness, cyanotic, pedal edema - Neurological Exam Neurological exam: Present: CN II-XII intact, no focal deficits. Absent: oriented X3, pronater drift, facial droop, speech deficit - Skin Skin exam: Present: dry, intact Whitfield catheter in place - Patient Status Disposition: Transfer SNF Condition: Fair Overall status at discharge: patient is back to baseline - Discharge Instructions Follow Up With: [facility]Primary Care Provider[facility] - Forms: ED Satisfaction Letter Additional Instructions: Complete 5 more days of Levaquin and Flagyl. Continue MiraLAX and docusate to avoid constipation. Physical therapy - Diet and Activity Activity: wear oxygen at all times Diet: diabetic diet - VTE Documentation of Mechanical Device: Intermittent pneumatic compression device
[2017-11-04] MEDS: Sennosides/Docusate Sodium TABLET PO SCH (08:49)
[2017-11-04] MEDS: Magnesium Oxide 400 MG TABLET PO SCH (08:49)
[2017-11-04] MEDS: Insulin LISPRO 300 UNITS/3 ML VIAL SQ SCH ×3 (08:50→17:15)
[2017-11-04] MEDS: Cholecalciferol (D-3) 1,000 UNIT TABLET PO SCH (08:50)
[2017-11-04] MEDS: amLODIPine 5 MG TABLET PO SCH (08:50)
[2017-11-04] MEDS: Aspirin 81 MG TAB.CHEW PO SCH (08:50)
--- NOTE | 2017-11-04 09:00 | Physician Discharge Referral ---
ExtendedCare Referral Info Provider in Charge after Transfer: PCP Institutional Level of Care: Skilled - Diagnosis (1) UTI (urinary tract infection) Status: Acute (2) Proctitis Status: Acute (3) Diabetes Status: Acute (4) Schizophrenia Status: Acute (5) Encephalopathy acute Status: Acute (6) Thrombocytopenia Status: Acute (7) Hyperkalemia Status: Acute - Transfer Medications Prescriptions: Levofloxacin [Levaquin] 750 mg PO DAILY #5 tablet metroNIDAZOLE [Flagyl] 500 mg PO TID #15 tablet Polyethylene Glycol 3350 [MiraLAX] 17 gm PO DAILY 30 Days powd.pack Home Medications: Alendronate Sodium [Binosto] 70 mg PO GUEVARA 11/02/17 [History] Amlodipine Besylate 10 mg PO DAILY 11/02/17 [History] Aspirin Enteric Coated [Aspirin EC] 81 mg PO DAILY 11/02/17 [History] Atorvastatin [Lipitor] 10 mg PO HS 11/02/17 [History] Cholecalciferol (Vitamin D3) [Vitamin D3] 2,000 unit PO DAILY 11/02/17 [History] Insulin Glargine [Lantus] 20 unit SQ HS 11/02/17 [History] Lisinopril [Zestril] 10 mg PO DAILY 11/02/17 [History] Magnesium Oxide [Mag-Ox] 400 mg PO DAILY 11/02/17 [History] Multivit-Min/FA/Lycopen/Lutein [Adults 50+ Multivitamin Tablet] 1 tab PO DAILY 11/02/17 [History] Pantoprazole Sodium [Protonix] 40 mg PO DAILY 11/02/17 [History] Prazosin HCl [Minipress] 2 mg PO HS 11/02/17 [History] Propranolol [Inderal] 20 mg PO BID 11/02/17 [History] Quetiapine Fumarate [Seroquel] 25 mg PO HS 11/02/17 [History] metFORMIN [Glucophage] 500 mg PO BID 11/02/17 [History] traZODone [TraZODone] 75 mg PO HS 11/02/17 [History] Levofloxacin [Levaquin] 750 mg PO DAILY #5 tablet 11/04/17 [Rx] Levothyroxine [Synthroid] 25 mcg PO DAILY@0630 tablet 11/04/17 [Rx] Polyethylene Glycol 3350 [MiraLAX] 17 gm PO DAILY 30 Days powd.pack 11/04/17 [ Rx] Sennosides/Docusate Sodium [Senna Plus] 1 each PO BID tablet 11/04/17 [Rx] metroNIDAZOLE [Flagyl] 500 mg PO TID #15 tablet 11/04/17 [Rx] Allergies/Adverse Reactions: 3 Allergy/AdvReac Type Severity Reaction Status Date / Time adhesive AdvReac Rash Verified 11/02/17 00:15 - Respiratory Orders Smoking Cessation: Smoking cessation has been advised. For more information, call the [place] Tobacco Quit Line at 7-714-YJEO-NOW. - Advance Directives Code Status: Full Code - Treatments Fleet enema rectally every other day PRN cleansing purposes - Diet Orders House Supplement per Dietary: Complete 5 more days of Levaquin and Flagyl. Continue MiraLAX and docusate to avoid constipation. Physical therapy Diabetic diet CERTIFICATION: I certify that the transfer of the above named patient to an Extended Care Facility is necessary for the continuing treatment of the diagnosis listed. The above information is true and accurate reflection of patient's current condition. Confidential - Redisclosure prohibited without a patient's written consent.
[2017-11-04] MEDS: Levofloxacin 750 MG/150 ML 750 MG/150 ML BAG IVPB SCH (10:24)
--- NOTE | 2017-11-04 13:03 | Physician Discharge Referral ---
Home Health/Hosp Referral Info Transfer to: Home Health Provider in Charge Post Discharge: PCP - Diagnosis (1) UTI (urinary tract infection) Status: Acute (2) Proctitis Status: Acute (3) Diabetes Status: Acute (4) Schizophrenia Status: Acute (5) Encephalopathy acute Status: Acute (6) Thrombocytopenia Status: Acute (7) Hyperkalemia Status: Acute - Respiratory Orders Smoking Cessation: Smoking cessation has been advised. For more information, call the [place] Tobacco Quit Line at 6-799-ACNS-NOW. - Diet/Nutrition Diet/Nutrition Orders: No Added Salt (MYLENE) - Services Needed Following services are medically necessary services: Nursing, Home Health Aide, Physical Therapy, Occupational Therapy Home Care Orders: Continue Flagyl and Levaquin for 5 more days, avoid constipation. Follow-up with primary care physician within the next 7 days. Start levothyroxine - Transfer Medications Prescriptions: Docusate Sodium [Colace] 100 mg PO BID #60 capsule Levofloxacin [Levaquin] 750 mg PO DAILY #5 tablet Levothyroxine [Synthroid] 25 mcg PO 0630 #30 tablet metroNIDAZOLE [Flagyl] 500 mg PO TID #15 tablet Polyethylene Glycol 3350 [MiraLAX] 17 gm PO DAILY 30 Days powd.pack Home Medications: Alendronate Sodium [Binosto] 70 mg PO GUEVARA 11/02/17 [History] Amlodipine Besylate 10 mg PO DAILY 11/02/17 [History] Aspirin Enteric Coated [Aspirin EC] 81 mg PO DAILY 11/02/17 [History] Atorvastatin [Lipitor] 10 mg PO HS 11/02/17 [History] Cholecalciferol (Vitamin D3) [Vitamin D3] 2,000 unit PO DAILY 11/02/17 [History] Insulin Glargine [Lantus] 20 unit SQ HS 11/02/17 [History] Lisinopril [Zestril] 10 mg PO DAILY 11/02/17 [History] Magnesium Oxide [Mag-Ox] 400 mg PO DAILY 11/02/17 [History] Multivit-Min/FA/Lycopen/Lutein [Adults 50+ Multivitamin Tablet] 1 tab PO DAILY 11/02/17 [History] Pantoprazole Sodium [Protonix] 40 mg PO DAILY 11/02/17 [History] Prazosin HCl [Minipress] 2 mg PO HS 11/02/17 [History] Propranolol [Inderal] 20 mg PO BID 11/02/17 [History] Quetiapine Fumarate [Seroquel] 25 mg PO HS 11/02/17 [History] metFORMIN [Glucophage] 500 mg PO BID 11/02/17 [History] traZODone [TraZODone] 75 mg PO HS 11/02/17 [History] Docusate Sodium [Colace] 100 mg PO BID #60 capsule 11/04/17 [Rx] Levofloxacin [Levaquin] 750 mg PO DAILY #5 tablet 11/04/17 [Rx] Levothyroxine [Synthroid] 25 mcg PO 0630 #30 tablet 11/04/17 [Rx] Levothyroxine [Synthroid] 25 mcg PO DAILY@0630 tablet 11/04/17 [Rx] Polyethylene Glycol 3350 [MiraLAX] 17 gm PO DAILY 30 Days powd.pack 11/04/17 [ Rx] Sennosides/Docusate Sodium [Senna Plus] 1 each PO BID tablet 11/04/17 [Rx] metroNIDAZOLE [Flagyl] 500 mg PO TID #15 tablet 11/04/17 [Rx] Allergies/Adverse Reactions: 3 Allergy/AdvReac Type Severity Reaction Status Date / Time adhesive AdvReac Rash Verified 11/02/17 00:15 Certification: Further, I certify that my clinical findings support that this patient is homebound (i.e. absences from home require considerable and taxing effort and are for medical reasons or bahai services or infrequently or short duration when for other reasons) because: Homebound Reason: Patient requires assistance of a person or device to safely leave home Attestation: My signature below is to certify that this patient is under my care and that I, or nurse practitioner, or a physician's showroom sales assistant working with me, has a face-to -face encounter with this patient.
[2017-11-04 16:21] VITALS: BP 113/66
[2017-11-05] MEDS ORDERED: Levothyroxine 25 MCG TABLET PO SCH (06:30)
== END 2017-11-04 18:18 | disposition home or self-care (01) | DRG 871 ==
LOC: EMEROO 22:41 → 2NENU 11-02 02:21
PROVIDERS: ADMIT Internal Medicine; ATTEND Internal Medicine

== ENCOUNTER 2018-08-17 00:11 | Inpatient (IN) ==
--- NOTE | 2018-08-17 00:42 | Emergency Department Note ---
Disposition Clinical Impression: NORTH (acute kidney injury), Altered mental status CAP (community acquired pneumonia) Qualifiers: Laterality: unspecified laterality Qualified Code(s): J18.9 - Pneumonia, unspecified organism Disposition: Admitted As Inpatient Condition: Fair [facility] Care Provider[facility] - Forms: ED Satisfaction Letter Time of Disposition: 03:35 Neuro HPI - General Chief Complaint: ED Neuro Symptoms/Deficit Stated Complaint: I think he had a stroke Time Seen by Provider: 08/17/18 00:20 Source: patient, family Limitations: no limitations Nursing Notes Reviewed: Yes Vital Signs Reviewed: Yes - History of Present Illness HPI Narrative: Patient is a 68-year-old male brought in by family and caregiver with concerns for altered mental status. 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 Per family today around noon patient was eating lunch and seemed to be appropriate, this however seem to have some response time with conversation. She states that he then went to take a nap and when he woke up he seemed to be slightly disoriented and confused, not responding appropriately to questions. Was not moving all of his extremities. She also thought that he was slurring his speech, and had increased right facial droop. Last known well was noon today. Per patient in the room, he has a headache, otherwise is unremarkable. Per caregiver in the room baseline cognition is conversational, however is not alert and oriented to person place or time. Per caregiver no recent fevers, chills, no nausea or vomiting. He has had a few episodes of diarrhea and complaining of abdominal pain. Has had cough. - Related Data Home Medications: Home Medications Medication Instructions Recorded Confirmed Alendronate Sodium [Binosto] 70 mg PO GUEVARA 11/02/17 11/02/17 Amlodipine Besylate 10 mg PO DAILY 11/02/17 11/02/17 Aspirin Enteric Coated [Aspirin EC] 81 mg PO DAILY 11/02/17 11/02/17 Atorvastatin [Lipitor] 10 mg PO HS 11/02/17 11/02/17 Cholecalciferol (Vitamin D3) 2,000 unit PO DAILY 11/02/17 11/02/17 [Vitamin D3] Insulin Glargine [Lantus] 20 unit SQ HS 11/02/17 11/02/17 Lisinopril [Zestril] 10 mg PO DAILY 11/02/17 11/02/17 Magnesium Oxide [Mag-Ox] 400 mg PO DAILY 11/02/17 11/02/17 Multivit-Min/FA/Lycopen/Lutein 1 tab PO DAILY 11/02/17 11/02/17 [Adults 50+ Multivitamin Tablet] Pantoprazole Sodium [Protonix] 40 mg PO DAILY 11/02/17 11/02/17 Prazosin HCl [Minipress] 2 mg PO HS 11/02/17 11/02/17 Propranolol [Inderal] 20 mg PO BID 11/02/17 11/02/17 Quetiapine Fumarate [Seroquel] 25 mg PO HS 11/02/17 11/02/17 metFORMIN [Glucophage] 500 mg PO BID 11/02/17 11/02/17 traZODone [TraZODone] 75 mg PO HS 11/02/17 11/02/17 Previous Rx's Medication Instructions Recorded Docusate Sodium [Colace] 100 mg PO BID #60 capsule 11/04/17 Levofloxacin [Levaquin] 750 mg PO DAILY #5 tablet 11/04/17 Levothyroxine [Synthroid] 25 mcg PO 0630 #30 tablet 11/04/17 Levothyroxine [Synthroid] 25 mcg PO DAILY@0630 tablet 11/04/17 Polyethylene Glycol 3350 [MiraLAX] 17 gm PO DAILY 30 Days powd.pack 11/04/17 Sennosides/Docusate Sodium [Senna 1 each PO BID tablet 11/04/17 Plus] metroNIDAZOLE [Flagyl] 500 mg PO TID #15 tablet 11/04/17 Allergies/Adverse Reactions: Allergies Allergy/AdvReac Type Severity Reaction Status Date / Time adhesive AdvReac Rash Verified 11/02/17 00:15 All systems ED: reviewed and negative except as stated. Review of Systems: As Per HPI Constitutional: Denies: fever ENT ED: Denies: congestion Cardiovascular: Denies: chest pain Respiratory: Denies: cough Gastrointestinal: Reports: abdominal pain, diarrhea. Denies: nausea, vomiting Integumentary: Denies: rash Neurological: Reports: headache, confusion Past Medical History - Past Medical History Attestation: Yes The following information was validated with the patient. Medical history: Reports: dementia, diabetes, hepatitis, hyperlipidemia, hypertension Psychiatric history: Reports: PTSD, schizophrenia - Social History Smoking Status: Former smoker Smokeless Tobacco Status: No Alcohol use: Reports: none Drug use: Reports: none Physical Exam - General Limitations: altered mental status General appearance: alert - Head Head exam: atraumatic, normocephalic, normal inspection - Eye Eye exam: Present: normal appearance, PERRL, EOMI - ENT ENT exam: normal exam, normal oropharynx, mucous membranes moist - Neck Neck exam: Present: normal inspection, full ROM, trachea midline - Chest Chest inspection: Present: normal inspection, symmetric chest wall rise - Respiratory Respiratory exam: Present: other (Decreased breath sounds in the bases bilaterally, no wheezes) - Cardiovascular Cardiovascular exam: Present: regular rate, normal rhythm, normal heart sounds - Abdominal Exam Abdominal exam: Present: soft, tenderness (Patient has diffuse tenderness throughout the abdomen, no guarding or rebound). Absent: distention, guarding, rebound, rigidity - Extremities Exam Extremities exam: Present: normal inspection, full ROM. Absent: tenderness, pedal edema - Expanded Lower Extremity Exam Neurovascular/Tendon exam: Present: normal capillary refill. Absent: motor deficit, sensory deficit - Neurological Exam Neurological exam: Present: alert - Expanded Neurological Exam Patient oriented to: Present: person, place, time Speech: Present: fluid speech Cranial nerves: EOM function (II, III, IV, ): Normal, facial sensation (V): Normal, facial palsy (VII): Abnormal Right (Per family this is chronic and unchanged), spinal accessory function (XI): Normal, tongue deviation (XII): Normal Cerebellar function: finger to nose: Normal Motor strength - LUE: 5/5 Motor strength - RUE: 5/5 Motor strength - LLE: 5/5 Motor strength - RLE: 5/5 Upper motor neuron exam: guillermina neglect: Absent bilaterally, pronator drift: Absent bilaterally Sensory exam upper extremity: light touch: Normal Sensory exam lower extremity: light touch: Normal Coma Scale Eye Opening: Spontaneous Coma Scale Motor Response: Obeys Commands Coma Scale Verbal Response: Oriented Coma Scale Total: 15 Course Vital Signs Temperature 98.6 F 08/17/18 00:15 Pulse Rate 125 08/17/18 00:15 Respiratory Rate 17 08/17/18 00:15 Blood Pressure 130/66 08/17/18 00:15 O2 Sat by Pulse Oximetry 89 08/17/18 00:15 Temperature 98.6 F 08/17/18 00:15 Pulse Rate 107 08/17/18 02:00 Respiratory Rate 22 08/17/18 02:00 Blood Pressure 142/78 08/17/18 02:00 O2 Sat by Pulse Oximetry 93 08/17/18 02:00 Oxygen Delivery Oxygen Delivery Nasal Cannula Neuro Symptoms/Deficit - MDM Narrative Medical decision making narrative: Patient is a 68-year-old male presenting to the ED for altered mental status. Per family he had an acute change to progressively worsened from noon until 2. States that he does have history of CVA with chronic right-sided weakness. On arrival, patient appears in no acute distress, he has GCS of 15, NIH of 3. Does not appear to have any focal neurological neurological signs or symptoms outside of his baseline of right-sided slight facial droop. Stroke alert was not called. CT of the head was performed and shows no acute intracranial changes. CBC shows no leukocytosis, BMP shows slight bump and serum creatinine. CT of the chest shows significant bilateral pleural effusions as well as opacifications concerning for pneumonia. CT of the abdomen shows chronic changes, with moderate stool burden. Patient was started on azithromycin as well as Rocephin. Patient appears comfortable in the room. This point in time, I will admit the patient for further evaluation and treatment. - Lab Data Lab results reviewed: Yes I reviewed the patient's lab results. Result diagrams: 08/17/18 00:51 08/17/18 00:51 Lab Results 08/17/18 08/17/18 08/17/18 Range/Units 00:51 00:51 00:51 WBC 7.6 (4.3-11.1) K/mcL RBC 3.55 L (4.19-5.50) M/mcL Hgb 9.7 L (12.9-16.9) g/dL Hct 30.3 L (37.5-50.1) % MCV 85.4 (83.0-100.0) fL MCH 27.3 L (28.0-33.3) pg MCHC 32.0 (31.6-35.5) g/dL RDW 19.8 H (11.5-14.5) % Plt Count 202 (140-400) K/mcL MPV 8.9 L (9.4-12.4) fL PT 12.1 (9.4-12.1) Seconds INR 1.1 APTT 37.0 H (26.0-36.0) Seconds Sodium 138 (136-145) mEq/L Potassium 4.7 (3.5-5.1) mEq/L Chloride 106 (98-107) mEq/L Carbon Dioxide 22 L (23-29) mEq/L BUN 31 H (8-23) mg/dL Creatinine 1.71 H (0.70-1.30) mg/dL Est GFR ( Amer) 48 L (> 60) Est GFR (Non-Af Amer) 40 L (> 60) BUN/Creatinine Ratio 18 (6-26) Glucose 163 H (70-105) mg/dL Calculated Osmolality 296 (280-300) Calcium 9.7 (8.6-10.3) mg/dL Troponin I < 0.03 (< 0.04) ng/mL Urine Color (Yellow) Urine Clarity (Clear) Urine pH (5.0-8.0) pH Units Ur Specific [place] (1.010-1.025) Urine Protein (Neg-Trace) mg/dL Urine Glucose (UA) (Normal) mg/dL Urine Ketones (Negative) mg/dL Urine Blood (Negative) Urine Nitrite (Negative) Urine Bilirubin (Negative) Urine Urobilinogen (Normal) mg/dL Ur Leukocyte Esterase (Negative) Urine Microscopic RBC (0-3) per hpf Urine Microscopic WBC (0-3) per hpf Ur Squamous Epith Cells (None-Few) per lpf Urine Bacteria (None-Few) per hpf Hyaline Casts (None-Few) per lpf Ur Culture Indicated? (NO) 08/17/18 Range/Units 02:46 WBC (4.3-11.1) K/mcL RBC (4.19-5.50) M/mcL Hgb (12.9-16.9) g/dL Hct (37.5-50.1) % MCV (83.0-100.0) fL MCH (28.0-33.3) pg MCHC (31.6-35.5) g/dL RDW (11.5-14.5) % Plt Count (140-400) K/mcL MPV (9.4-12.4) fL PT (9.4-12.1) Seconds INR APTT (26.0-36.0) Seconds Sodium (136-145) mEq/L Potassium (3.5-5.1) mEq/L Chloride (98-107) mEq/L Carbon Dioxide (23-29) mEq/L BUN (8-23) mg/dL Creatinine (0.70-1.30) mg/dL Est GFR ( Amer) (> 60) Est GFR (Non-Af Amer) (> 60) BUN/Creatinine Ratio (6-26) Glucose (70-105) mg/dL Calculated Osmolality (280-300) Calcium (8.6-10.3) mg/dL Troponin I (< 0.04) ng/mL Urine Color Yellow (Yellow) Urine Clarity Cloudy A (Clear) Urine pH 8.0 (5.0-8.0) pH Units Ur Specific [place] 1.011 (1.010-1.025) Urine Protein 30 H (Neg-Trace) mg/dL Urine Glucose (UA) Normal (Normal) mg/dL Urine Ketones Negative (Negative) mg/dL Urine Blood Trace H (Negative) Urine Nitrite Negative (Negative) Urine Bilirubin Negative (Negative) Urine Urobilinogen Normal (Normal) mg/dL Ur Leukocyte Esterase Moderate H (Negative) Urine Microscopic RBC 0-3 (0-3) per hpf Urine Microscopic WBC 15-30 H (0-3) per hpf Ur Squamous Epith Cells Many H (None-Few) per lpf Urine Bacteria Many H (None-Few) per hpf Hyaline Casts None Seen (None-Few) per lpf Ur Culture Indicated? NO. A (NO) - Radiology Data Radiology results reviewed: Yes I reviewed the patient's radiology results. Chest X-Ray 08/17/18 00:39 IMPRESSION: Bibasilar airspace disease and atelectasis with right pleural effusion. Perilymphatic nodularity seen on comparison CT is less conspicuous by radiograph. D/ / Tiburcio Flores / Tiburcio Flores Interpreting Provider: Tiburcio Flores Abdomen/Pelvis CT 08/17/18 00:40 IMPRESSION: ABDOMEN/PELVIS Nonobstructing 2 mm right UVJ stone. Additional nonobstructive bilateral nephrolithiasis. Large volume colonic stool without obstruction. Small colonic stool ball without wall thickening or surrounding inflammation to suggest stercoral proctitis. Normal appendix. The appearance of retroperitoneal lymphadenopathy is unchanged, but may actually represent small vessels. Contrast-enhanced exam could potentially help clarify. CHEST New moderate volume right pleural effusion with progressive bibasilar consolidative opacities and additional right lung perilymphatic nodularity suspicious for neoplastic process. Thoracentesis with fluid analysis (including cytology) should be considered. Mildly enlarged mediastinal lymph node is indeterminate. Recommend attention on follow-up. Indeterminate sclerotic focus in the sternum. Recommend attention on follow-up. D/ / Tiburcio Flores / Tiburcio Flores Interpreting Provider: Tiburcio Flores Chest CT 08/17/18 00:40 IMPRESSION: ABDOMEN/PELVIS Nonobstructing 2 mm right UVJ stone. Additional nonobstructive bilateral nephrolithiasis. Large volume colonic stool without obstruction. Small colonic stool ball without wall thickening or surrounding inflammation to suggest stercoral proctitis. Normal appendix. The appearance of retroperitoneal lymphadenopathy is unchanged, but may actually represent small vessels. Contrast-enhanced exam could potentially help clarify. CHEST New moderate volume right pleural effusion with progressive bibasilar consolidative opacities and additional right lung perilymphatic nodularity suspicious for neoplastic process. Thoracentesis with fluid analysis (including cytology) should be considered. Mildly enlarged mediastinal lymph node is indeterminate. Recommend attention on follow-up. Indeterminate sclerotic focus in the sternum. Recommend attention on follow-up. D/ / Tiburcio Flores / Tiburcio Flores Interpreting Provider: Tiburcio Flores Head CT 08/17/18 00:40 IMPRESSION: No acute intracranial abnormality. Chronic small ischemic disease and scattered infarcts both basal ganglia regions and right cerebellum. D/ / Jordon Fuentes / Jordon Fuentes Interpreting Provider: Jordon Fuentes - EKG Data EKG attestation: Yes I reviewed and interpreted this EKG. EKG results narrative: EKG performed at 251 with ventricular rate of 99, regular rhythm, normal axis, no ST segment elevation or depression, nonspecific T-wave changes. NIH Stroke Scale - Level of Consciousness LOC: Alert - LOC Questions LOC Questions: Answers both incorrectly - LOC Commands LOC Commands: Performs both correctly - Best Gaze Best Gaze: Normal - Visual Visual: No visual loss - Facial Palsy Facial Palsy: Minor asymmetry on smiling, flattened nasolabial fold - Motor Arms Motor Arm-Left: No drift for 10 seconds Motor Arm-Right: No drift for 10 seconds - Motor Legs Motor Leg-Left: No drift for 5 seconds Motor Leg-Right: No drift for 5 seconds - Limb Ataxia Limb Ataxia: Absent of affected limb too weak to perform exam - Sensory Sensory: Normal - Best Language Best Language: No aphasia - Dysarthria Dysarthria: Normal - Extinction and Inattention Extinction and Inattention: Normal - NIHSS Total Score NIHSS Total Score: 3 TPA Checklist - LKW: 3-4.5 hrs Add. Warnings/Precautions Patient/family understanding: The patient/family members have been counseled and understood the risk, benefit, and alternatives of treatment. S.B.A.R. - Jo-[email or web address].Cherelle Situation: Demographics, MOA Background: Presenting Complaint, Relevant PMH, Meds, & Allergies Assessment: Vital Signs, Course and respsone to treatment, Exam Concerns, Patient/Family Expectation, Pertinant Lab Results, Outstanding Labs Recommendation: Barrier(s) to disposition, Recommendation based on pending studies, treatments, or consults S.B.A.RJorge Report Given to: Dr. Ar Fraga Repor Time: 03:42 (accepted)
[2018-08-17 01:11] LABS: Hematocrit 30.3 % (37.5-50.1); Hemoglobin 9.7 g/dL (12.9-16.9); Mean Corpuscular Hemoglobin 27.3 pg (28.0-33.3); Mean Corpuscular Volume 85.4 fL (83.0-100.0); Mean Platelet Volume 8.9 fL (9.4-12.4); Platelet Count 202 K/mcL (140-400); Red Blood Count 3.55 M/mcL (4.19-5.50); Red Cell Distribution Width 19.8 % (11.5-14.5)
[2018-08-17 01:20] LABS: INR 1.1; Prothrombin Time 12.1 Seconds (9.4-12.1)
[2018-08-17 01:36] LABS: BUN/Creatinine Ratio 18 (6-26); Blood Urea Nitrogen 31 mg/dL (8-23); Calcium 9.7 mg/dL (8.6-10.3); Carbon Dioxide 22 mEq/L (23-29); Chloride 106 mEq/L (98-107); Glucose 163 mg/dL (70-105); Osmolality,Calculated 296 (280-300); Potassium 4.7 mEq/L (3.5-5.1); Sodium 138 mEq/L (136-145); eGFR For Non-African Americans 40 (> 60)
[2018-08-17 01:37] LABS: Troponin I < 0.03 ng/mL (< 0.04)
[2018-08-17] MEDS ORDERED: cefTRIAXone 1,000 MG in Water for inj. (sterile) 20 ML 10 ML IVP ONE (02:39)
[2018-08-17] MEDS ORDERED: Azithromycin 500 MG in D5% in Water 250 ML IVPB ONE (02:39)
[2018-08-17 02:56] LABS: Bilirubin,Urine Negative (Negative); Blood,Urine Trace (Negative); Clarity,Urine Cloudy (Clear); Color,Urine Yellow (Yellow); Glucose,Urine (UA) Normal (Normal); Ketones,Urine Negative (Negative); Leukocyte Esterase,Urine Moderate (Negative); Nitrite,Urine Negative (Negative); Protein,Urine 30 mg/dL (Neg-Trace); Specific Gravity,Urine 1.011 (1.010-1.025); Urobilinogen,Urine Normal (Normal)
[2018-08-17 02:58] LABS: Bacteria,Urine Many per hpf (None-Few); Hyaline Casts,Urine None Seen per lpf (None-Few); RBC,Urine 0-3 per hpf (0-3); Squamous Epithelial Cell,Urine Many per lpf (None-Few); WBC,Urine 15-30 per hpf (0-3)
--- NOTE | 2018-08-17 04:32 | Emergency Department Note ---
Disposition Clinical Impression: NORTH (acute kidney injury), Altered mental status CAP (community acquired pneumonia) Qualifiers: Laterality: unspecified laterality Qualified Code(s): J18.9 - Pneumonia, unspecified organism Disposition: Admitted As Inpatient Condition: Fair General Adult HPI - General Chief complaint: ED Neuro Symptoms/Deficit Stated complaint: I think he had a stroke Time Seen by Provider: 08/17/18 00:20 Source: patient, family Limitations: altered mental status Nursing Notes Reviewed: Yes Vital Signs Reviewed: Yes - History of Present Illness Pain Scale: 0 - Related Data Home Medications Medication Instructions Recorded Confirmed Alendronate Sodium [Binosto] 70 mg PO GUEVARA 11/02/17 08/17/18 Amlodipine Besylate 5 mg PO DAILY 11/02/17 08/17/18 Aspirin Enteric Coated [Aspirin EC] 81 mg PO DAILY 11/02/17 08/17/18 Atorvastatin [Lipitor] 10 mg PO HS 11/02/17 08/17/18 Cholecalciferol (Vitamin D3) 2,000 unit PO DAILY 11/02/17 08/17/18 [Vitamin D3] Insulin Glargine [Lantus] 13 unit SQ HS 11/02/17 08/17/18 Lisinopril [Zestril] 2.5 mg PO DAILY 11/02/17 08/17/18 Magnesium Oxide [Mag-Ox] 400 mg PO DAILY 11/02/17 08/17/18 Multivit-Min/FA/Lycopen/Lutein 1 tab PO DAILY 11/02/17 08/17/18 [Adults 50+ Multivitamin Tablet] Pantoprazole Sodium [Protonix] 40 mg PO DAILY 11/02/17 08/17/18 Prazosin HCl [Minipress] 2 mg PO HS 11/02/17 08/17/18 Quetiapine Fumarate [Seroquel] 25 mg PO HS 11/02/17 08/17/18 metFORMIN [Glucophage] 500 mg PO BID 11/02/17 08/17/18 traZODone [TraZODone] 50 mg PO HS 11/02/17 08/17/18 Albuterol Sulfate [Albuterol 2 puff IH Q6HR PRN 08/17/18 08/17/18 Inhaler] Ferrous Sulfate [Iron] 325 mg PO BID 08/17/18 08/17/18 Previous Rx's Medication Instructions Recorded Levothyroxine [Synthroid] 25 mcg PO DAILY@0630 tablet 11/04/17 Allergies Allergy/AdvReac Type Severity Reaction Status Date / Time adhesive AdvReac Rash Verified 11/02/17 00:15 Constitutional: Denies: fever ENT ED: Denies: congestion Cardiovascular: Denies: chest pain Respiratory: Denies: cough Gastrointestinal: Reports: abdominal pain, diarrhea. Denies: nausea, vomiting Integumentary: Denies: rash Neurological: Reports: headache, confusion Past Medical History - Past Medical History Medical history: Reports: dementia, diabetes, hepatitis, hyperlipidemia, hype rtension Psychiatric history: Reports: PTSD, schizophrenia - Social History Smoking Status: Former smoker Smokeless Tobacco Status: No Alcohol use: Reports: none Drug use: Reports: none Physical Exam - General Limitations: altered mental status General appearance: alert Course Vital Signs Temperature 98.6 F 08/17/18 00:15 Pulse Rate 125 08/17/18 00:15 Respiratory Rate 17 08/17/18 00:15 Blood Pressure 130/66 08/17/18 00:15 O2 Sat by Pulse Oximetry 89 08/17/18 00:15 Temperature 98.6 F 08/17/18 00:15 Pulse Rate 103 08/17/18 03:30 Respiratory Rate 18 08/17/18 04:34 Blood Pressure 135/77 08/17/18 04:34 O2 Sat by Pulse Oximetry 92 08/17/18 03:30 Oxygen Delivery Oxygen Delivery Nasal Cannula Medical Decision Making - Medical Records Medical records reviewed: Yes I reviewed the patient's medical records. - Lab Data Lab results reviewed: Yes I reviewed the patient's lab results. Result diagrams: 08/17/18 00:51 08/17/18 00:51 Lab Results 08/17/18 08/17/18 08/17/18 Range/Units 00:51 00:51 00:51 WBC 7.6 (4.3-11.1) K/mcL RBC 3.55 L (4.19-5.50) M/mcL Hgb 9.7 L (12.9-16.9) g/dL Hct 30.3 L (37.5-50.1) % MCV 85.4 (83.0-100.0) fL MCH 27.3 L (28.0-33.3) pg MCHC 32.0 (31.6-35.5) g/dL RDW 19.8 H (11.5-14.5) % Plt Count 202 (140-400) K/mcL MPV 8.9 L (9.4-12.4) fL PT 12.1 (9.4-12.1) Seconds INR 1.1 APTT 37.0 H (26.0-36.0) Seconds Sodium 138 (136-145) mEq/L Potassium 4.7 (3.5-5.1) mEq/L Chloride 106 (98-107) mEq/L Carbon Dioxide 22 L (23-29) mEq/L BUN 31 H (8-23) mg/dL Creatinine 1.71 H (0.70-1.30) mg/dL Est GFR ( Amer) 48 L (> 60) Est GFR (Non-Af Amer) 40 L (> 60) BUN/Creatinine Ratio 18 (6-26) Glucose 163 H (70-105) mg/dL Calculated Osmolality 296 (280-300) Calcium 9.7 (8.6-10.3) mg/dL Troponin I < 0.03 (< 0.04) ng/mL Urine Color (Yellow) Urine Clarity (Clear) Urine pH (5.0-8.0) pH Units Ur Specific Jasper (1.010-1.025) Urine Protein (Neg-Trace) mg/dL Urine Glucose (UA) (Normal) mg/dL Urine Ketones (Negative) mg/dL Urine Blood (Negative) Urine Nitrite (Negative) Urine Bilirubin (Negative) Urine Urobilinogen (Normal) mg/dL Ur Leukocyte Esterase (Negative) Urine Microscopic RBC (0-3) per hpf Urine Microscopic WBC (0-3) per hpf Ur Squamous Epith Cells (None-Few) per lpf Urine Bacteria (None-Few) per hpf Hyaline Casts (None-Few) per lpf Ur Culture Indicated? (NO) 08/17/18 Range/Units 02:46 WBC (4.3-11.1) K/mcL RBC (4.19-5.50) M/mcL Hgb (12.9-16.9) g/dL Hct (37.5-50.1) % MCV (83.0-100.0) fL MCH (28.0-33.3) pg MCHC (31.6-35.5) g/dL RDW (11.5-14.5) % Plt Count (140-400) K/mcL MPV (9.4-12.4) fL PT (9.4-12.1) Seconds INR APTT (26.0-36.0) Seconds Sodium (136-145) mEq/L Potassium (3.5-5.1) mEq/L Chloride (98-107) mEq/L Carbon Dioxide (23-29) mEq/L BUN (8-23) mg/dL Creatinine (0.70-1.30) mg/dL Est GFR ( Amer) (> 60) Est GFR (Non-Af Amer) (> 60) BUN/Creatinine Ratio (6-26) Glucose (70-105) mg/dL Calculated Osmolality (280-300) Calcium (8.6-10.3) mg/dL Troponin I (< 0.04) ng/mL Urine Color Yellow (Yellow) Urine Clarity Cloudy A (Clear) Urine pH 8.0 (5.0-8.0) pH Units Ur Specific [place]asper 1.011 (1.010-1.025) Urine Protein 30 H (Neg-Trace) mg/dL Urine Glucose (UA) Normal (Normal) mg/dL Urine Ketones Negative (Negative) mg/dL Urine Blood Trace H (Negative) Urine Nitrite Negative (Negative) Urine Bilirubin Negative (Negative) Urine Urobilinogen Normal (Normal) mg/dL Ur Leukocyte Esterase Moderate H (Negative) Urine Microscopic RBC 0-3 (0-3) per hpf Urine Microscopic WBC 15-30 H (0-3) per hpf Ur Squamous Epith Cells Many H (None-Few) per lpf Urine Bacteria Many H (None-Few) per hpf Hyaline Casts None Seen (None-Few) per lpf Ur Culture Indicated? NO. A (NO) - Radiology Data Radiology results reviewed: Yes I reviewed the patient's radiology results. Chest X-Ray 08/17/18 00:39 IMPRESSION: Bibasilar airspace disease and atelectasis with right pleural effusion. Perilymphatic nodularity seen on comparison CT is less conspicuous by radiograph. D/ / Tiburcio Flores / Tiburcio Flores Interpreting Provider: Tiburcio Flores Abdomen/Pelvis CT 08/17/18 00:40 IMPRESSION: ABDOMEN/PELVIS Nonobstructing 2 mm right UVJ stone. Additional nonobstructive bilateral nephrolithiasis. Large volume colonic stool without obstruction. Small colonic stool ball without wall thickening or surrounding inflammation to suggest stercoral proctitis. Normal appendix. The appearance of retroperitoneal lymphadenopathy is unchanged, but may actually represent small vessels. Contrast-enhanced exam could potentially help clarify. CHEST New moderate volume right pleural effusion with progressive bibasilar consolidative opacities and additional right lung perilymphatic nodularity suspicious for neoplastic process. Thoracentesis with fluid analysis (including cytology) should be considered. Mildly enlarged mediastinal lymph node is indeterminate. Recommend attention on follow-up. Indeterminate sclerotic focus in the sternum. Recommend attention on follow-up. D/ / Tibrucio Flores / Tiburcio Flores Interpreting Provider: Tiburcio Flores Chest CT 08/17/18 00:40 IMPRESSION: ABDOMEN/PELVIS Nonobstructing 2 mm right UVJ stone. Additional nonobstructive bilateral nephrolithiasis. Large volume colonic stool without obstruction. Small colonic stool ball without wall thickening or surrounding inflammation to suggest stercoral proctitis. Normal appendix. The appearance of retroperitoneal lymphadenopathy is unchanged, but may actually represent small vessels. Contrast-enhanced exam could potentially help clarify. CHEST New moderate volume right pleural effusion with progressive bibasilar consolidative opacities and additional right lung perilymphatic nodularity suspicious for neoplastic process. Thoracentesis with fluid analysis (including cytology) should be considered. Mildly enlarged mediastinal lymph node is indeterminate. Recommend attention on follow-up. Indeterminate sclerotic focus in the sternum. Recommend attention on follow-up. D/ / Tiburcio Flores / Tiburcio Flores Interpreting Provider: Tiburcio Flores Head CT 08/17/18 00:40 IMPRESSION: No acute intracranial abnormality. Chronic small ischemic disease and scattered infarcts both basal ganglia regions and right cerebellum. D/ / Jordon Fuentes / Jordon Fuentes Interpreting Provider: Jordon Fuentes - EKG Data EKG #1 EKG attestation: Yes I reviewed and interpreted this EKG. EKG results narrative: Normal sinus rhythm with ventricular rate of 99. Possible old septal HI. No ST segment elevation or depression. No arrhythmia or ectopy. Critical Care Time Critical Care Time: Yes Total Critical Care Time: 35 Attestation: Critical care performed: Time is exclusive of separately billable procedures. Time includes: direct patient care, patient reassessment, coordination of patient care, interpretation of data (laboratory data, radiology data, and respiratory data), review of patient's medical records, medical consultation and documentation of patient care. Procedures included in critical care time: Procedures excluded from critical care time: Attestation Statement - Attestation Attestation: I, Mahesh Ray MD, personally evaluated this patient and discussed their management with the resident physician. I reviewed the resident's note and agree with the documented findings, medical decision making, and plan of care. 68-year-old male who was brought to the emergency department by his niece who is his curriculum and assessment director presents with niece complaining that she thinks he may have had a stroke. Patient has a history of a stroke in the past with some mild right-si ded residual and mild right facial droop residually. She states he has some drooling intermittently. He also has dementia. He is normally alert and conversational but not oriented to place or time. Niece reports that today about noon he seemed a little sluggish and not his normal self. She fed him his lunch and then he took a nap. When he woke up about 2 PM she thought he was drooling more than usual and his right facial droop was worse than usual. She also thought his speech was more slurred than usual and he had more difficulty walking. It appears however on talking with her that he normally has difficulty walking and is incontinent of stool and urine frequently. She states the sy mptoms just seem to get worse throughout the evening so she decided to bring him in to get checked. No recent falls. Patient does complain of some abdominal pain. He did have some diarrhea a few days ago. No melena, hematemesis, or hematochezia. He has had some increased cough recently. No fever noticed. On examination patient is a well-developed well-nourished elderly male in no acute distress. He is alert but oriented to person only. He seems pleasantly confused but responds appropriately to questions. There might be minimal right facial droop. He has good sales intern strength bilaterally. No drift of the upper or lower extremities. No focal motor or sensory deficits noted other than the minimal right facial droop. No obvious slurring of speech. Breath sounds are equal bilaterally. Heart regular. Abdomen soft with mild diffuse tenderness. Labs reviewed. EKG shows normal sinus rhythm with ventricular rate of 99. Possible old septal HI. No ST segment elevation or depression. No arrhythmia or ectopy. No acute abnormality on head CT. CT of the chest abdomen and pelvis showed some bibasilar airspace disease and increased stool in the colon. There is also a 2 mm nonobstructing stone at the UVJ. Blood cultures obtained and antibiotics initiated. The hospitalist, Dr. Joyner, was consulted and accepted admission of the patient.
[2018-08-17] MEDS ORDERED: Naloxone 0.4 MG/ML INJ IVP PRN (04:53)
[2018-08-17] MEDS: Levothyroxine 25 MCG TABLET PO SCH (06:11)
[2018-08-17 06:14] LABS: Basophils % 0.3 %; Eosinophils # 0.1 K/mcL (0.0-0.6); Eosinophils % 0.9 %; Hematocrit 27.7 % (37.5-50.1); Hemoglobin 8.9 g/dL (12.9-16.9); Immature Granulocytes % 0.9 % (0-4); Lymphocytes # 1.3 K/mcL (0.6-4.6); Lymphocytes % 18.4 %; Mean Corpuscular HGB Conc 32.1 g/dL (31.6-35.5); Mean Corpuscular Hemoglobin 27.3 pg (28.0-33.3); Monocytes # 1.2 K/mcL (0.0-1.3); Monocytes % 16.6 %; Neutrophils # 4.4 K/mcL (1.6-8.9); Platelet Count 172 K/mcL (140-400); Red Blood Count 3.26 M/mcL (4.19-5.50); Red Cell Distribution Width 19.7 % (11.5-14.5); Segmented Neutrophils % 62.9 %
[2018-08-17 06:22] LABS: INR 1.2; Prothrombin Time 13.3 Seconds (9.4-12.1)
[2018-08-17 06:34] LABS: Albumin 3.3 g/dL (3.5-5.7); Bilirubin,Total 0.4 mg/dL (0.3-1.0); Calcium 9.3 mg/dL (8.6-10.3); Globulin 3.2 g/dL (2.4-3.5); Magnesium 1.5 mg/dL (1.6-2.6); Potassium 4.1 mEq/L (3.5-5.1); Total Protein 6.5 g/dL (6.4-8.9)
--- NOTE | 2018-08-17 06:47 | Internal Med History&Physical ---
Date of Encounter: 08/17/18 Time of Encounter: 06:33 Internal Medicine - H&P: HPI Chief complaint: AMS History of present illness: Mr. Giles is a 68 year old male with a past medical history of dementia, CVA, diabetes type 2, hypertension, GERD and schizophrenia who was brought in by his niece who is his field specialist due to concern for stroke. On my assessment, patient is alert oriented 1 and unable to provide a history. No family members were at bedside during this time. Patient has a history of prior CVA with some mild right-sided residual weakness and mild right facial droop. Patient has a history of dementia and at baseline and is normally alert and conversational, but is not oriented to place and time. Per report, around noon today he seemed sluggish and off. His niece fed him his lunch and the patient took a nap thereafter. When he awoke around 2 PM she noted that he was drooling more than usual and that his right facial droop seemed to be worse. She also reports that his speech was more slurred than usual and was having more difficulty walking. Symptoms seem to get worse throughout the day. She subsequently became concerned and decided to bring him in for evaluation. Patient apparently had been complaining of some abdominal pain and had diarrhea a few days ago. No reports of melena or hematochezia. He has also had some increased cough as of late. On my assessment, patient was alert oriented 1. He was able to follow commands. There was mild facial droop on the right though barely noticeable. I did appreciate right-sided weakness as compared to the left. No other focal deficits noted. On arrival patient was afebrile, hemodynamically stable though requiring 4 L nasal cannula. It is unclear at this time if he is on home oxygen. Laboratory workup was notable for anemia which appears to be chronic, and an elevated creatinine above baseline. CT Imaging of the head, chest abdomen and pelvis was performed. Of note there was a new moderate right pleural effusion with progressive bibasilar consolidative opacities and additional right lung with peilymphatic nodularity suspicious for neoplastic process. Past Med Surg Social Fam HX - Past Medical History Medical history: dementia, diabetes, hepatitis, hyperlipidemia, hypertension Psychiatric history: PTSD, schizophrenia - Social History Smoking Status: Former smoker Smokeless Tobacco Status: No Alcohol use: none Drug use: none Internal Medicine - H&P: Meds Alendronate Sodium [Binosto] 70 mg PO GUEVARA 11/02/17 [History] Amlodipine Besylate 5 mg PO DAILY 11/02/17 [History] Aspirin Enteric Coated [Aspirin EC] 81 mg PO DAILY 11/02/17 [History] Atorvastatin [Lipitor] 10 mg PO HS 11/02/17 [History] Cholecalciferol (Vitamin D3) [Vitamin D3] 2,000 unit PO DAILY 11/02/17 [History] Insulin Glargine [Lantus] 13 unit SQ HS 11/02/17 [History] Lisinopril [Zestril] 2.5 mg PO DAILY 11/02/17 [History] Magnesium Oxide [Mag-Ox] 400 mg PO DAILY 11/02/17 [History] Multivit-Min/FA/Lycopen/Lutein [Adults 50+ Multivitamin Tablet] 1 tab PO DAILY 11/02/17 [History] Pantoprazole Sodium [Protonix] 40 mg PO DAILY 11/02/17 [History] Prazosin HCl [Minipress] 2 mg PO HS 11/02/17 [History] Quetiapine Fumarate [Seroquel] 25 mg PO HS 11/02/17 [History] metFORMIN [Glucophage] 500 mg PO BID 11/02/17 [History] traZODone [TraZODone] 50 mg PO HS 11/02/17 [History] Levothyroxine [Synthroid] 25 mcg PO DAILY@0630 tablet 11/04/17 [Rx] Albuterol Sulfate [Albuterol Inhaler] 2 puff IH Q6HR PRN 08/17/18 [History] Ferrous Sulfate [Iron] 325 mg PO BID 08/17/18 [History] Allergy/AdvReac Type Severity Reaction Status Date / Time adhesive AdvReac Rash Verified 11/02/17 00:15 All Systems PM: A 10-system review of systems was performed and is negative for pertinent findings except as documented above in the HPI. - Constitutional Constitutional: no chills, no fever(s), no night sweats - EENT Eyes: no change in vision, no discharge, no pain, no photophobia Ears: no ear discharge, no ear pain, no tinnitus Nose, mouth and throat: no dysphagia, no nasal discharge, no neck pain, no sore throat - Cardiovascular Cardiovascular ROS IM: no chest pain, no diaphoresis, no dyspnea, no lightheadedness, no palpitations, no syncope - Respiratory Respiratory: no cough, no dyspnea, no wheezing, no excessive phlegm production - Gastrointestinal Gastrointestinal: no abdominal pain, no diarrhea, no hematemesis, no hematochezia, no melena, no nausea, no vomiting - Musculoskeletal Musculoskeletal ROS IM: no numbness, no tingling - Integumentary Integumentary IM: no rash, no unusual bruising - Neurological Neurological ROS: no confusion, no convulsions, no focal weakness, no numbness, no tingling, no tremor(s) - Hematologic/Lymphatic Hematologic/Lymphatic: no easy bruising - Constitutional Vitals: Temp Pulse Resp BP Pulse Ox 97.9 F 99 16 144/78 93 08/17/18 05:21 08/17/18 05:21 08/17/18 05:21 08/17/18 05:21 08/17/18 05:42 Exam: General: Alert and oriented 1 Skin:Normal color, no rash, no lesions. HEENT:EOM, pupils equal, round and reactive. Cardiovascular:Normal S1 & S2, no rubs, murmurs or gallops. No JVD. Pulse regular. Lungs:Normal breath sounds, no wheezes or crackles. Abdomen:Soft, non-tender, no rigidity. Extremities:No deformity, no edema or tenderness, no joint swelling or clubbing. Neurological: Cranial nerves II through XII intact. Muscle strength in the upper and lower extremity on the right 4 out of 5. Upper and lower extremity muscle strength 5 out of 5 on the left. Sensation intact. Pulses:Carotid and radial pulses normal +2. Rest of the physical exam is non contributory Internal Med - H&P Results - Labs CBC & Chem 7: 08/17/18 06:01 08/17/18 06:01 Labs: Short CBC 08/17/18 08/17/18 Range/Units 00:51 06:01 WBC 7.6 7.0 (4.3-11.1) K/mcL Hgb 9.7 L 8.9 L (12.9-16.9) g/dL Hct 30.3 L 27.7 L (37.5-50.1) % Plt Count 202 172 (140-400) K/mcL Neutrophils # 4.4 (1.6-8.9) K/mcL BMP 08/17/18 00:51 Sodium 138 Potassium 4.7 Chloride 106 Carbon Dioxide 22 L BUN 31 H Creatinine 1.71 H Glucose 163 H Calcium 9.7 Cardiac Enzymes 08/17/18 Range/Units 00:51 Troponin I < 0.03 (< 0.04) ng/mL Urine 08/17/18 Range/Units 02:46 Urine Color Yellow (Yellow) Urine Clarity Cloudy A (Clear) Urine pH 8.0 (5.0-8.0) pH Units Ur Specific [place] 1.011 (1.010-1.025) Urine Protein 30 H (Neg-Trace) mg/dL Urine Glucose (UA) Normal (Normal) mg/dL - Impressions ITS Impressions Chest X-Ray 08/17/18 00:39 IMPRESSION: Bibasilar airspace disease and atelectasis with right pleural effusion. Perilymphatic nodularity seen on comparison CT is less conspicuous by radiograph. D/ / Tiburcio Flores / Tiburcio Flores Interpreting Provider: Tiburcio Flores Abdomen/Pelvis CT 08/17/18 00:40 IMPRESSION: ABDOMEN/PELVIS Nonobstructing 2 mm right UVJ stone. Additional nonobstructive bilateral nephrolithiasis. Large volume colonic stool without obstruction. Small colonic stool ball without wall thickening or surrounding inflammation to suggest stercoral proctitis. Normal appendix. The appearance of retroperitoneal lymphadenopathy is unchanged, but may actually represent small vessels. Contrast-enhanced exam could potentially help clarify. CHEST New moderate volume right pleural effusion with progressive bibasilar consolidative opacities and additional right lung perilymphatic nodularity suspicious for neoplastic process. Thoracentesis with fluid analysis (including cytology) should be considered. Mildly enlarged mediastinal lymph node is indeterminate. Recommend attention on follow-up. Indeterminate sclerotic focus in the sternum. Recommend attention on follow-up. D/ / Tiburcio Flores / Tiburcio Flores Interpreting Provider: Tiburcio Flores Chest CT 08/17/18 00:40 IMPRESSION: ABDOMEN/PELVIS Nonobstructing 2 mm right UVJ stone. Additional nonobstructive bilateral nephrolithiasis. Large volume colonic stool without obstruction. Small colonic stool ball without wall thickening or surrounding inflammation to suggest stercoral proctitis. Normal appendix. The appearance of retroperitoneal lymphadenopathy is unchanged, but may actually represent small vessels. Contrast-enhanced exam could potentially help clarify. CHEST New moderate volume right pleural effusion with progressive bibasilar consolidative opacities and additional right lung perilymphatic nodularity suspicious for neoplastic process. Thoracentesis with fluid analysis (including cytology) should be considered. Mildly enlarged mediastinal lymph node is indeterminate. Recommend attention on follow-up. Indeterminate sclerotic focus in the sternum. Recommend attention on follow-up. D/ / Tiburcio Flores / Tiburcio Flores Interpreting Provider: Tiburcio Flores Head CT 08/17/18 00:40 IMPRESSION: No acute intracranial abnormality. Chronic small ischemic disease and scattered infarcts both basal ganglia regions and right cerebellum. D/ / Jordon Fuentes / Jordon Fuentes Interpreting Provider: Jordon Fuentes - Assessment and plan (1) Slurred speech Current Visit: Yes Status: Acute Assessment and plan: Patient presents with reported worsening slurred speech. Symptoms appear to have resolved. Concern for TIA. -Neurochecks -Echocardiogram and bilateral carotid -We will obtain MRI in the morning -Consider neurology consult (2) Altered mental status Current Visit: Yes Status: Acute Assessment and plan: Patient presents with altered mental status with reports of worsening right- sided facial droop and slurred speech concerning for TIA/CVA. Patient appears to be back to baseline. Patient found to be afebrile with a normal white blood cell count. However on physical examination he does appear to be congested with rhonchi appreciated on lung examination and history of cough. CT scan of the head was unremarkable. CT scan of the chest however does show a new moderate volume right pleural effusion with progressive bibasilar consolidative opacities and additional right lung periymphatic nodularity suspicious for neoplastic process. Additionally patient was found to be in acute kidney injury. No other metabolic derangements were appreciated. -We will workup for TIA/CVA -We will continue antibiotics for possible community-acquired pneumonia -We will need workup for right-sided pleural effusion suspicious for neoplastic process Qualifiers: Altered mental status type: unspecified Qualified Code(s): R41.82 - Altered mental status, unspecified (3) Pleural effusion Current Visit: Yes Status: Acute Assessment and plan: CT scan of the chest shows a new moderate volume right-sided pleural effusion with progressive bibasilar consolidative opacities and additional right lung perilymphatic nodularity suspicious for neoplastic process. -Patient may need thoracentesis with cytology and further fluid workup -We will obtain pulmonary consult (4) CAP (community acquired pneumonia) Current Visit: Yes Status: Acute Assessment and plan: Patient reports history of cough. Appears to be congested on physical examination. Low lung sounds are rhonchorous. Her community acquired pneumonia versus aspiration. -We will start patient on antibiotics with ceftriaxone and azithromycin -Consider speech and swallow evaluation to assess for aspiration. Qualifiers: Laterality: unspecified laterality Qualified Code(s): J18.9 - Pneumonia, unspecified organism (5) Acute kidney injury Current Visit: Yes Status: Acute Assessment and plan: Acute kidney injury with a creatinine of 1.71. Baseline appears to be around 1.1. -We will start patient on fluid support -Repeat creatinine (6) Diabetes Current Visit: No Status: Acute Assessment and plan: Blood glucose checks. Diabetic diet once patient cleared by bedside swallow eval. 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
[2018-08-17] MEDS ORDERED: Dextrose Gel 15 GM/37.5 ML TUBE PO PRN ×2 (07:42)
[2018-08-17] MEDS ORDERED: D5% in Water 1,000 ML IVC PRN (07:42)
[2018-08-17] MEDS ORDERED: *HR* Dextrose 50 % in Water (Syg) 50 ML SYRINGE IVP PRN (07:42)
[2018-08-17] MEDS: Insulin LISPRO 300 UNITS/3 ML VIAL SQ SCH ×3 (07:53→17:12)
[2018-08-17] MEDS: Cholecalciferol (D-3) 1,000 UNIT TABLET PO SCH (09:36)
[2018-08-17] MEDS: Aspirin Enteric Coated 81 MG Tablet PO SCH (09:36)
[2018-08-17] MEDS: Magnesium Oxide 400 MG TABLET PO SCH (09:36)
[2018-08-17] MEDS: Multivit/Ca/Min/Fe/FA 1 TAB TABLET PO SCH (09:36)
--- NOTE | 2018-08-17 11:15 | Internal Med Progress Note ---
<Emiliano Staton P - Last Filed: 08/17/18 15:27> Hospitalist Progress Note - Encounter Date of Encounter: 08/17/18 Time of Encounter: 10:00 - Subjective Interval History: 68 year old male with a past medical history of dementia, CVA, diabetes type 2, hypertension, GERD and schizophrenia who was brought in by his niece who is his branch customer service representative due to concern for stroke.Patient has a history of prior CVA with some mild right-sided residual weakness and mild right facial droop.New moderate volume right pleural effusion with progressive bibasilar consolidative opacities and additional right lung perilymphatic nodularity,suspicious for neoplastic process.Mildly enlarged mediastinal lymph node is indeterminate. Today during my visit the patient was lying comfortably on the bed, well oriented to time place and person, looks a little bit dyspneic, he does have shortness of breath. He further stated that her condition is the same as before. Vital signs stable,no fever for 24 hours. We have consulted heat treater head for CT chest finding today. - Exam Vitals: Temp Pulse Resp BP Pulse Ox 98.3 F 103 15 149/83 94 08/17/18 07:51 08/17/18 07:51 08/17/18 07:51 08/17/18 07:51 08/17/18 07:51 Exam: General: Alert and oriented 1 Skin:Normal color, no rash, no lesions. HEENT:EOM, pupils equal, round and reactive. Cardiovascular:Normal S1 & S2, no rubs, murmurs or gallops. No JVD. Pulse regular. Lungs:Normal breath sounds, no wheezes or crackles. Abdomen:Soft, non-tender, no rigidity. Extremities:No deformity, no edema or tenderness, no joint swelling or clubbing. Neurological: Cranial nerves II through XII intact. Muscle strength in the upper and lower extremity on the right 4 out of 5. Upper and lower extremity muscle strength 5 out of 5 on the left. Sensation intact. Pulses:Carotid and radial pulses normal +2. Rest of the physical exam is non contributory - Assessment and Plan (1) Slurred speech Current Visit: Yes Status: Acute Assessment and Plan: The patient has slurred speech, but he stated that it is getting better May be feature of Dementia , may be due to Stroke CT head normal finding MRI head has been planned We didnot appreciate any focal neurological deficit during examination. We will review after MRI report. Plan neurology consultation if MRI is abnormal. He is already on aspirin and Lipitor (2) Pleural effusion Current Visit: Yes Status: Acute Assessment and Plan: CT chest : New moderate volume right pleural effusion with progressive bibasilar consolidative opacities and additional right lung perilymphatic nodularity suspicious for neoplastic process. [employer] has been consulted Plan for thoracocentesis (3) CAP (community acquired pneumonia) Current Visit: Yes Status: Acute Assessment and Plan: ptient reports history of cough. Appears to be congested on physical examination. Low lung sounds are not clear , occasional creps present with expiatory rhonhi community acquired pneumonia versus aspiration. CT chest :Bibasilar atelectasis and consolidative opacities The patient is already on azithromycin and ceftriaxone (4) NORTH (acute kidney injury) Current Visit: Yes Status: Acute Assessment and Plan: Recent has impaired renal function BUN 27 creatinine 1.43 GFR 49 It might be due to dehydration We have ordered nephrotoxic medication and closely monitor urine creatinine tomorrow. (5) Diabetes Current Visit: No Status: Acute Assessment and Plan: The patient is chronic diabetes He is on insulin sliding scale Glucose 162 (6) DVT prophylaxis Current Visit: Yes Status: Acute Assessment and Plan: Mechanical; pneumatic compression device - Time Spent with Patient Total time spent is greater than 50% in coordination of care (as documented) at patient's floor/unit and/or counseling patient: Internal Medicine: Result - Labs CBC & Chem 7: 08/17/18 06:01 08/17/18 06:01 Labs: Short CBC 08/17/18 08/17/18 Range/Units 00:51 06:01 WBC 7.6 7.0 (4.3-11.1) K/mcL Hgb 9.7 L 8.9 L (12.9-16.9) g/dL Hct 30.3 L 27.7 L (37.5-50.1) % Plt Count 202 172 (140-400) K/mcL Neutrophils # 4.4 (1.6-8.9) K/mcL BMP 08/17/18 08/17/18 00:51 06:01 Sodium 138 138 Potassium 4.7 4.1 Chloride 106 107 Carbon Dioxide 22 L 22 L BUN 31 H 27 H Creatinine 1.71 H 1.43 H Glucose 163 H 162 H Calcium 9.7 9.3 Cardiac Enzymes 08/17/18 Range/Units 00:51 Troponin I < 0.03 (< 0.04) ng/mL Liver Function 08/17/18 Range/Units 06:01 Total Bilirubin 0.4 (0.3-1.0) mg/dL AST 18 (13-39) Units/L ALT 14 (7-52) Units/L Alkaline Phosphatase 92 (34-104) Units/L Albumin 3.3 L (3.5-5.7) g/dL Urine 08/17/18 Range/Units 02:46 Urine Color Yellow (Yellow) Urine Clarity Cloudy A (Clear) Urine pH 8.0 (5.0-8.0) pH Units Ur Specific Ralph 1.011 (1.010-1.025) Urine Protein 30 H (Neg-Trace) mg/dL Urine Glucose (UA) Normal (Normal) mg/dL - ABG Interpretation ABG results: PT/INR, D-dimer PT 13.3 Seconds (9.4-12.1) H 08/17/18 06:01 - Impressions Impressions Chest X-Ray 08/17/18 00:39 IMPRESSION: Bibasilar airspace disease and atelectasis with right pleural effusion. Perilymphatic nodularity seen on comparison CT is less conspicuous by radiograph. D/ / Tiburcio Flores / Tiburcio Flores Interpreting Provider: Tiburcio Flores Abdomen/Pelvis CT 08/17/18 00:40 IMPRESSION: ABDOMEN/PELVIS Nonobstructing 2 mm right UVJ stone. Additional nonobstructive bilateral nephrolithiasis. Large volume colonic stool without obstruction. Small colonic stool ball without wall thickening or surrounding inflammation to suggest stercoral proctitis. Normal appendix. The appearance of retroperitoneal lymphadenopathy is unchanged, but may actually represent small vessels. Contrast-enhanced exam could potentially help clarify. CHEST New moderate volume right pleural effusion with progressive bibasilar consolidative opacities and additional right lung perilymphatic nodularity suspicious for neoplastic process. Thoracentesis with fluid analysis (including cytology) should be considered. Mildly enlarged mediastinal lymph node is indeterminate. Recommend attention on follow-up. Indeterminate sclerotic focus in the sternum. Recommend attention on follow-up. D/ / Tiburcio Flores / Tiburcio Flores Interpreting Provider: Tiburcio Flores Chest CT 08/17/18 00:40 IMPRESSION: ABDOMEN/PELVIS Nonobstructing 2 mm right UVJ stone. Additional nonobstructive bilateral nephrolithiasis. Large volume colonic stool without obstruction. Small colonic stool ball without wall thickening or surrounding inflammation to suggest stercoral proctitis. Normal appendix. The appearance of retroperitoneal lymphadenopathy is unchanged, but may actually represent small vessels. Contrast-enhanced exam could potentially help clarify. CHEST New moderate volume right pleural effusion with progressive bibasilar consolidative opacities and additional right lung perilymphatic nodularity suspicious for neoplastic process. Thoracentesis with fluid analysis (including cytology) should be considered. Mildly enlarged mediastinal lymph node is indeterminate. Recommend attention on follow-up. Indeterminate sclerotic focus in the sternum. Recommend attention on follow-up. D/ / Tiburcio Flores / Tiburcio Flores Interpreting Provider: Tiburcio Flores Head CT 08/17/18 00:40 IMPRESSION: No acute intracranial abnormality. Chronic small ischemic disease and scattered infarcts both basal ganglia regions and right cerebellum. D/ / Jordon Fuentes / Jordon Fuentes Interpreting Provider: Jordon Fuentes Consult Discharge Plan - Plan Referrals: [facility] Provider[facility] - <Bhrati Herron - Last Filed: 08/17/18 15:49> Hospitalist Progress Note - Encounter Date of Encounter: 08/17/18 - Exam Vitals: Temp Pulse Resp BP Pulse Ox 99.1 F 95 14 144/74 92 08/17/18 11:42 08/17/18 11:42 08/17/18 11:42 08/17/18 11:42 08/17/18 11:42 - Assessment and Plan (1) Diabetes Current Visit: No Status: Acute (2) CAP (community acquired pneumonia) Current Visit: Yes Status: Acute (3) Altered mental status Current Visit: Yes Status: Acute (4) Pleural effusion Current Visit: Yes Status: Acute (5) Acute kidney injury Current Visit: Yes Status: Acute (6) DVT prophylaxis Current Visit: Yes Status: Acute (7) Slurred speech Current Visit: Yes Status: Acute - Time Spent with Patient Total time spent is greater than 50% in coordination of care (as documented) at patient's floor/unit and/or counseling patient: Internal Medicine: Result - Labs CBC & Chem 7: 08/17/18 06:01 08/17/18 06:01 Labs: Short CBC 08/17/18 08/17/18 Range/Units 00:51 06:01 WBC 7.6 7.0 (4.3-11.1) K/mcL Hgb 9.7 L 8.9 L (12.9-16.9) g/dL Hct 30.3 L 27.7 L (37.5-50.1) % Plt Count 202 172 (140-400) K/mcL Neutrophils # 4.4 (1.6-8.9) K/mcL BMP 08/17/18 08/17/18 00:51 06:01 Sodium 138 138 Potassium 4.7 4.1 Chloride 106 107 Carbon Dioxide 22 L 22 L BUN 31 H 27 H Creatinine 1.71 H 1.43 H Glucose 163 H 162 H Calcium 9.7 9.3 Cardiac Enzymes 08/17/18 Range/Units 00:51 Troponin I < 0.03 (< 0.04) ng/mL Liver Function 08/17/18 Range/Units 06:01 Total Bilirubin 0.4 (0.3-1.0) mg/dL AST 18 (13-39) Units/L ALT 14 (7-52) Units/L Alkaline Phosphatase 92 (34-104) Units/L Albumin 3.3 L (3.5-5.7) g/dL Urine 08/17/18 Range/Units 02:46 Urine Color Yellow (Yellow) Urine Clarity Cloudy A (Clear) Urine pH 8.0 (5.0-8.0) pH Units Ur Specific Ralph 1.011 (1.010-1.025) Urine Protein 30 H (Neg-Trace) mg/dL Urine Glucose (UA) Normal (Normal) mg/dL - ABG Interpretation ABG results: PT/INR, D-dimer PT 13.3 Seconds (9.4-12.1) H 08/17/18 06:01 - Impressions Impressions Chest X-Ray 08/17/18 00:39 IMPRESSION: Bibasilar airspace disease and atelectasis with right pleural effusion. Perilymphatic nodularity seen on comparison CT is less conspicuous by radiograph. D/ / Tiburcio Flores / Tiburcio Flores Interpreting Provider: Tiburcio Flores Abdomen/Pelvis CT 08/17/18 00:40 IMPRESSION: ABDOMEN/PELVIS Nonobstructing 2 mm right UVJ stone. Additional nonobstructive bilateral nephrolithiasis. Large volume colonic stool without obstruction. Small colonic stool ball without wall thickening or surrounding inflammation to suggest stercoral proctitis. Normal appendix. The appearance of retroperitoneal lymphadenopathy is unchanged, but may actually represent small vessels. Contrast-enhanced exam could potentially help clarify. CHEST New moderate volume right pleural effusion with progressive bibasilar consolidative opacities and additional right lung perilymphatic nodularity suspicious for neoplastic process. Thoracentesis with fluid analysis (including cytology) should be considered. Mildly enlarged mediastinal lymph node is indeterminate. Recommend attention on follow-up. Indeterminate sclerotic focus in the sternum. Recommend attention on follow-up. D/ / Tiburcio Flores / Tiburcio Flores Interpreting Provider: iTburcio Flores Chest CT 08/17/18 00:40 IMPRESSION: ABDOMEN/PELVIS Nonobstructing 2 mm right UVJ stone. Additional nonobstructive bilateral nephrolithiasis. Large volume colonic stool without obstruction. Small colonic stool ball without wall thickening or surrounding inflammation to suggest stercoral proctitis. Normal appendix. The appearance of retroperitoneal lymphadenopathy is unchanged, but may actually represent small vessels. Contrast-enhanced exam could potentially help clarify. CHEST New moderate volume right pleural effusion with progressive bibasilar consolidative opacities and additional right lung perilymphatic nodularity suspicious for neoplastic process. Thoracentesis with fluid analysis (including cytology) should be considered. Mildly enlarged mediastinal lymph node is indeterminate. Recommend attention on follow-up. Indeterminate sclerotic focus in the sternum. Recommend attention on follow-up. D/ / Tiburcio Flores / Tiburcio Flores Interpreting Provider: Tiburcio Flores Head CT 08/17/18 00:40 IMPRESSION: No acute intracranial abnormality. Chronic small ischemic disease and scattered infarcts both basal ganglia regions and right cerebellum. D/ / Jordon Fuentes / Jordon Fuentes Interpreting Provider: Jordon Fuentes Chest X-Ray 08/17/18 15:05 IMPRESSION: 1. Status post thoracentesis with no pneumothorax. 2. Stable lung base consolidative changes. D/ / 08/17/2018 15:34:25 Rober Ronquillo MD / shaggy Interpreting Provider: Rober Ronquillo MD - Attending Attestation I examined this patient and my medical decision-making was reviewed with the Resident Physician Dr. Staton. I agree with the documented findings, disp osition and treatment plan as described except to the extent set forth below. Mr. Giles is a 68 year old male with a past medical history of dementia, CVA, diabetes type 2, hypertension, GERD and schizophrenia who was brought in by his niece who is his branch customer service representative due to concern for stroke with slurred speech. Also patient noted to be hypoxic and requiring 4 lit oxygen in the ER. His CT Imaging of the head, chest abdomen and pelvis was performed which showed a new more traitor right pleural effusion with progressive basilar consolidate opacities. He was admitted in the hospital and placed him on bus monitor. He was started on empirical antibiotic ceftriaxone azithromycin. Gen: A, A, O to self only.. Pleasantly demented Chest: diminished breath sounds bilaterally more significant in the right side, no rales, crackles+ Heart: S1S2 + RRR No murmurs a/p 1. Acute hypoxic respiratory failure 2. Rt pleural effusion 3. Acute CAP - mostly bacterial cont empirical abx Rocephin + Azithromycin Duoneb Cont O2 Pulmonary consulted for possible thoracocentesis will f/u on fluid analysis 4. Slurred speech mostly due to advanced dementia improved now waiting on Brain MRI <Emiliano Staton - Last Filed: 08/17/18 15:27> (5) Diabetes Qualifiers: Diabetes mellitus type: type 2 Diabetes mellitus usp insulin use: with rat exterminator use Diabetes mellitus complication status: with unspecified complications Qualified Code(s): E11.8 - Type 2 diabetes mellitus with unspecified complications; Z79.4 - predatory animal exterminator (current) use of insulin; Z79.4 - correction (current) use of insulin; Z79.4 - correction (current) use of insulin; Z79.4 - predatory animal exterminator (current) use of insulin <Bharti Herron - Last Filed: 08/17/18 15:49> (1) Diabetes Qualifiers: Diabetes mellitus type: type 2 Diabetes mellitus rat exterminator insulin use: with rat exterminator use Diabetes mellitus complication status: with unspecified complications Qualified Code(s): E11.8 - Type 2 diabetes mellitus with unspecified complications; Z79.4 - correction (current) use of insulin; Z79.4 - predatory animal exterminator (current) use of insulin; Z79.4 - predatory animal exterminator (current) use of insulin; Z79.4 - predatory animal exterminator (current) use of insulin (2) CAP (community acquired pneumonia) Qualifiers: Laterality: unspecified laterality Qualified Code(s): J18.9 - Pneumonia, unspecified organism (3) Altered mental status Qualifiers: Altered mental status type: unspecified Qualified Code(s): R41.82 - Altered mental status, unspecified
--- NOTE | 2018-08-17 12:17 | Pulmonology Consult Note ---
<Singh Godfrey M - Last Filed: 08/17/18 21:58> Date of Encounter: 08/17/18 Medications and Allergies Alendronate Sodium [Binosto] 70 mg PO GUEVARA 11/02/17 [History] Amlodipine Besylate 5 mg PO DAILY 11/02/17 [History] Aspirin Enteric Coated [Aspirin EC] 81 mg PO DAILY 11/02/17 [History] Atorvastatin [Lipitor] 10 mg PO HS 11/02/17 [History] Cholecalciferol (Vitamin D3) [Vitamin D3] 2,000 unit PO DAILY 11/02/17 [History] Insulin Glargine [Lantus] 13 unit SQ HS 11/02/17 [History] Lisinopril [Zestril] 2.5 mg PO DAILY 11/02/17 [History] Magnesium Oxide [Mag-Ox] 400 mg PO DAILY 11/02/17 [History] Multivit-Min/FA/Lycopen/Lutein [Adults 50+ Multivitamin Tablet] 1 tab PO DAILY 11/02/17 [History] Pantoprazole Sodium [Protonix] 40 mg PO DAILY 11/02/17 [History] Prazosin HCl [Minipress] 2 mg PO HS 11/02/17 [History] Quetiapine Fumarate [Seroquel] 25 mg PO HS 11/02/17 [History] metFORMIN [Glucophage] 500 mg PO BID 11/02/17 [History] traZODone [TraZODone] 50 mg PO HS 11/02/17 [History] Levothyroxine [Synthroid] 25 mcg PO DAILY@0630 tablet 11/04/17 [Rx] Albuterol Sulfate [Albuterol Inhaler] 2 puff IH Q6HR PRN 08/17/18 [History] Ferrous Sulfate [Iron] 325 mg PO BID 08/17/18 [History] Allergy/AdvReac Type Severity Reaction Status Date / Time adhesive AdvReac Rash Verified 11/02/17 00:15 All Systems: The remainder of the systems were reviewed and are negative Physical Examination Vital Signs: Vital Signs, Last 4 Hours Temp Pulse Resp BP Pulse Ox 08/17/18 16:51 98.7 F 98 16 145/73 91 Results - Laboratory Findings CBC and BMP: 08/17/18 06:01 08/17/18 06:01 PT/INR, D-dimer PT 13.3 Seconds (9.4-12.1) H 08/17/18 06:01 Abnormal lab findings: Abnormal lab results RBC 3.26 M/mcL (4.19-5.50) L 08/17/18 06:01 Hgb 8.9 g/dL (12.9-16.9) L 08/17/18 06:01 Hct 27.7 % (37.5-50.1) L 08/17/18 06:01 MCH 27.3 pg (28.0-33.3) L 08/17/18 06:01 RDW 19.7 % (11.5-14.5) H 08/17/18 06:01 MPV 9.0 fL (9.4-12.4) L 08/17/18 06:01 PT 13.3 Seconds (9.4-12.1) H 08/17/18 06:01 APTT 37.0 Seconds (26.0-36.0) H 08/17/18 00:51 Carbon Dioxide 22 mEq/L (23-29) L 08/17/18 06:01 BUN 27 mg/dL (8-23) H 08/17/18 06:01 Creatinine 1.43 mg/dL (0.70-1.30) H 08/17/18 06:01 Est GFR ( Amer) 59 (> 60) L 08/17/18 06:01 Est GFR (Non-Af Amer) 49 (> 60) L 08/17/18 06:01 Glucose 162 mg/dL (70-105) H 08/17/18 06:01 POC Glucose 165 mg/dL (70-99) H 08/17/18 05:31 Magnesium 1.5 mg/dL (1.6-2.6) L 08/17/18 06:01 Albumin 3.3 g/dL (3.5-5.7) L 08/17/18 06:01 Albumin/Globulin Ratio 1.0 (1.1-2.2) L 08/17/18 06:01 Urine Clarity Cloudy (Clear) A 08/17/18 02:46 Urine Protein 30 mg/dL (Neg-Trace) H 08/17/18 02:46 Urine Blood Trace (Negative) H 08/17/18 02:46 Ur Leukocyte Esterase Moderate (Negative) H 08/17/18 02:46 Urine Microscopic WBC 15-30 per hpf (0-3) H 08/17/18 02:46 Ur Squamous Epith Cells Many per lpf (None-Few) H 08/17/18 02:46 Urine Bacteria Many per hpf (None-Few) H 08/17/18 02:46 Ur Culture Indicated? NO. (NO) A 08/17/18 02:46 - Microbiology Findings Microbiology Findings: Microbiology, Last 48 Hours 08/17/18 06:01 Blood Culture - Preliminary Peripheral Venipuncture Culture is incubating and being continuously monitored for growth. Final report to follow. 08/17/18 05:57 Blood Culture - Preliminary Peripheral Venipuncture Culture is incubating and being continuously monitored for growth. Final report to follow. - Clinical Findings Intake & Output: Intake & Output 08/17/18 08/17/18 08/17/18 07:59 15:59 23:59 Intake Total 260 / 260 Output Total 0 / 0 Balance 260 / 260 Weight 72 kg Consult Discharge Plan - Plan [facility]: [facility] Care Provider[facility] - - Attending Attestation I examined this patient and my medical decision-making was reviewed with the Resident Physician. I agree with the documented findings, disposition and treatment plan as described except to the extent set forth below. Patient seen and examined. Labs, radiology, chart personally reviewed. 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 after obtaining consent from family then bedside US was done and only small pocket was identified and then successfully only fluid was done for diagnostic purpose. As far as abnormality on CT chest, we may consider bronchoscopy if we don't get answers from the thoracentesis. This could be done as outpatient as well. Cardiovascular: stable Thanks for consult, will continue follow up. <Nelia Olvera - Last Filed: 08/17/18 22:58> Date of Encounter: 08/17/18 Time of Encounter: 12:17 Assessment and Plan (1) Pleural effusion, right Current Visit: Yes Status: Acute This is a 68 y/o M with PMHx significant for dementia, CVA, DMII, HTN, GERD, Schizophrenia who was brought in by niece due to concern of stroke. - Associated with increasing SOB, cough - Pt AOx1 (to name, but not person, place) - Hemodynamically stable on presentation with increasing O2 requirement 4L via NC - Afebrile without leukocytosis CXR (08/17/18) - Bibasilar airspace disease and atelectasis with right pleural effusion - Perilymphatic nodularity seen on comparison CT is less conspicuous by radiograph CT Chest (08/17/18): - New moderate volume right pleural effusion with progressive bibasilar consolidative opacities and additional right lung perilymphatic nodularity suspicious for neoplastic process. Thoracentesis with fluid analysis (including cytology) should be considered. - Mildly enlarged mediastinal lymph node is indeterminate. Recommend attention on follow-up. - Indeterminate sclerotic focus in the sternum. Recommend attention on follow- up. PLAN: Given pleural effusion, plan for thoracentesis - Follow up pleural studies - Obtained consent for niece prior to procedure - Cont to monitor vitals, monitor O2 sat; titrate to maintain O2 sat > 88% (2) Acute and chronic respiratory failure with hypoxia Current Visit: Yes Status: Acute Increased use of O2 from baseline CXR (08/17/18) - Bibasilar airspace disease and atelectasis with right pleural effusion - Perilymphatic nodularity seen on comparison CT is less conspicuous by radiograph CT Chest (08/17/18): - New moderate volume right pleural effusion with progressive bibasilar consolidative opacities and additional right lung perilymphatic nodularity suspicious for neoplastic process. Thoracentesis with fluid analysis (including cytology) should be considered. - Mildly enlarged mediastinal lymph node is indeterminate. Recommend attention on follow-up. - Indeterminate sclerotic focus in the sternum. Recommend attention on follow- up. PLAN: Likely secondary to pleural effusion and community acquired pneumonia - Plan for thoracentesis today; follow up pleural studies - CAP currently treated with Azithromycin and Ceftriaxone; cont abx - Duonebs PRN - Wean O2 as tolerated; titrate to keep O2 sat > 88% - Out of bed to chair, incentive spirometry - Monitor vitals, O2 sat (3) CAP (community acquired pneumonia) Current Visit: Yes Status: Acute Plan as above - continue antibiotics - Monitor for white count, fever Qualifiers: Laterality: unspecified laterality Qualified Code(s): J18.9 - Pneumonia, unspecified organism History of Present Illness Consult date: 08/17/18 Requesting physician: Emiliano Staton Reason for consult: pleural effusion Chief complaint: Pleural Effusion History of present illness: This is a 68 y/o M with PMHx significant for dementia, CVA, DMII, HTN, GERD, Schizophrenia who was brought in by niece due to concern of stroke. Pt has hx of prior CVA with mild right-sided residual weakness and mild right facial droop. Pt also hx of dementia at baseline, only AOx1 (to person, but not place nor time). Pt unable to give coherent hx. Hx obtained from record. Niece noted patient to be sluggish and acting differently than normal. After feeding him lunch, patient took nap, and upon waking, she noted patient to be drooling more than usual with worsening right facial droop, increased slurring of speech, and difficulty walking, with progressively worsening symptoms. Pt was brought in for evaluation. Pt was additionally noted to have worsening cough and SOB of late. On arrival, pt noted to be hemodynamically stable, but requiring 4L O2 via NC to maintain appropriate saturation. Pt was afebrile without leukocytosis. Imaging was obtained: CXR (08/17/18) - Bibasilar airspace disease and atelectasis with right pleural effusion - Perilymphatic nodularity seen on comparison CT is less conspicuous by radiograph CT Chest (08/17/18): - New moderate volume right pleural effusion with progressive bibasilar consolidative opacities and additional right lung perilymphatic nodularity suspicious for neoplastic process. Thoracentesis with fluid analysis (including cytology) should be considered. - Mildly enlarged mediastinal lymph node is indeterminate. Recommend attention on follow-up. - Indeterminate sclerotic focus in the sternum. Recommend attention on follow- up. Pulmonology consulted to further evaluate large pleural effusion concerning for underlying neoplastic process. On my examination, pt resting comfortably at bedside in no acute distress, breathing comfortably with O2 sats appropriate on 4L NC. Pt was AOx1 (to person, but not time nor place) and able to follow commands. However, pt was unable to give further history, and family member was not at bedside. Past Med Surg Social Fam HX - Past Medical History Attestation: Yes The following information was validated with the patient. Source: old records reviewed Medical history: dementia, diabetes, hepatitis, hyperlipidemia, hypertension Psychiatric history: PTSD, schizophrenia - Social History Smoking Status: Former smoker Smokeless Tobacco Status: No Alcohol use: none Drug use: none ROS unobtainable: due to mental status All Systems: The remainder of the systems were reviewed and are negative Physical Examination Vital Signs: Vital Signs, Last 4 Hours Temp Pulse Resp BP Pulse Ox 08/17/18 11:42 99.1 F 95 14 144/74 92 General appearance: no acute distress, alert Eyes: nonicteric ENT: oropharynx moist Neck: lymphadenopathy (Mild anterior cervical lymphadenopathy) Effort: normal Inspection: normal Auscultation: right: diminished breath sounds (Diminished breath sounds at right lower lung base; no wheezes, rales, crackles) Cardiovascular: regular rate and rhythm Gastrointestinal: normoactive bowel sounds, soft, non-tender, non-distended Extremities: no cyanosis, no edema pupils equal and round, unable to assess due to mental status mood appropriate, affect normal Results - Laboratory Findings CBC and BMP: 08/17/18 06:01 08/17/18 06:01 PT/INR, D-dimer PT 13.3 Seconds (9.4-12.1) H 08/17/18 06:01 Abnormal lab findings: Abnormal lab results RBC 3.26 M/mcL (4.19-5.50) L 08/17/18 06:01 Hgb 8.9 g/dL (12.9-16.9) L 08/17/18 06:01 Hct 27.7 % (37.5-50.1) L 08/17/18 06:01 MCH 27.3 pg (28.0-33.3) L 08/17/18 06:01 RDW 19.7 % (11.5-14.5) H 08/17/18 06:01 MPV 9.0 fL (9.4-12.4) L 08/17/18 06:01 PT 13.3 Seconds (9.4-12.1) H 08/17/18 06:01 APTT 37.0 Seconds (26.0-36.0) H 08/17/18 00:51 Carbon Dioxide 22 mEq/L (23-29) L 08/17/18 06:01 BUN 27 mg/dL (8-23) H 08/17/18 06:01 Creatinine 1.43 mg/dL (0.70-1.30) H 08/17/18 06:01 Est GFR ( Amer) 59 (> 60) L 08/17/18 06:01 Est GFR (Non-Af Amer) 49 (> 60) L 08/17/18 06:01 Glucose 162 mg/dL (70-105) H 08/17/18 06:01 POC Glucose 165 mg/dL (70-99) H 08/17/18 05:31 Magnesium 1.5 mg/dL (1.6-2.6) L 08/17/18 06:01 Albumin 3.3 g/dL (3.5-5.7) L 08/17/18 06:01 Albumin/Globulin Ratio 1.0 (1.1-2.2) L 08/17/18 06:01 Urine Clarity Cloudy (Clear) A 08/17/18 02:46 Urine Protein 30 mg/dL (Neg-Trace) H 08/17/18 02:46 Urine Blood Trace (Negative) H 08/17/18 02:46 Ur Leukocyte Esterase Moderate (Negative) H 08/17/18 02:46 Urine Microscopic WBC 15-30 per hpf (0-3) H 08/17/18 02:46 Ur Squamous Epith Cells Many per lpf (None-Few) H 08/17/18 02:46 Urine Bacteria Many per hpf (None-Few) H 08/17/18 02:46 Ur Culture Indicated? NO. (NO) A 08/17/18 02:46 - Microbiology Findings Microbiology Findings: Microbiology, Last 48 Hours 08/17/18 06:01 Blood Culture - Preliminary Peripheral Venipuncture Culture is incubating and being continuously monitored for growth. Final report to follow. 08/17/18 05:57 Blood Culture - Preliminary Peripheral Venipuncture Culture is incubating and being continuously monitored for growth. Final report to follow. - Clinical Findings Intake & Output: Intake & Output 08/16/18 08/17/18 08/17/18 23:59 07:59 15:59 Intake Total 260 / 260 Output Total 0 / 0 Balance 260 / 260 Weight 72 kg
--- NOTE | 2018-08-17 17:35 | Procedure Note ---
Date of procedure: 08/17/18 Pre-op diagnosis: Right-sided pleural effusion Post-op diagnosis: same Procedure: Diagnostic and therapeutic thoracentesis Medications: Local lidocaine 1% 10 mL No immediate complications After obtaining informed consent from power of associate attorney, the patient was placed in a sitting position. Using ultrasound, the right hemithorax was examined revealing a small sized pleural effusion. The best entry site was marked. The area was prepped in the usual sterile fashion. Fluid was aspirated using a 21- gauge needle which was placed in the mid-scapular line. 20 mL of serosanguineous fluid was removed. Fluid was sent for routine pleural analysis. Patient's condition did not change the after the procedure. Chest x-ray was ordered for any evidence of pneumothorax or complications. Anesthesia: local Surgeon: Singh Godfrey Was there an administrative personal assistant present: No Estimated blood loss (cc): 0 Specimen: 0 Condition: stable
[2018-08-17] MEDS: *HR* Heparin 5,000 UNIT/ML VIAL SQ SCH (17:47)
--- NOTE | 2018-08-17 19:39 | Event Note ---
Date of Encounter: 08/17/18 Time of Encounter: 18:31 Alerted by pts. nurse GENNY Carbajal that patient's MRI results were back. Patient admitted for CVA rule out. MRI showed that there is no acute infarct. There is volume loss with chronic white matter microvascular ischemic disease characterized by periventricular white matter signal abnormality. Remote infarcts are present within the deep duarte matter of both cerebral hemispheres as well as within the cerebellum. There is evidence of a remote bleed within the left frontal lobe, possibly due to stroke. Normal expected signal voids are present within the vessels of the base of the skull. Discussed patient with Dr. Taylor to clarify remote bleed w/i left frontal lobe w/recommendation to continue daily ASA. NIHSS scale DCd. Will continue Neurologic status assessments Q4HR, aspiration precautions, cardiac monitoring, elevation of head of bed. Falls precautions and up with assist 2 ordered. Nurse instructed to continue monitoring patient very closely and alert me immediately of any adverse changes.
[2018-08-17 21:05] LABS: Total Protein,Pleural Fluid 3.3 g/dL (No Ref Range)
[2018-08-17 22:22] LABS: Appearance of Pleural Fl Cloudy (Clear)
[2018-08-18] MEDS: Azithromycin 500 MG in D5% in Water 250 ML IVPB SCH (02:27)
[2018-08-18] MEDS: cefTRIAXone 1,000 MG in Water for inj. (sterile) 20 ML 10 ML IVPB SCH (02:27)
[2018-08-18 05:29] LABS: BUN/Creatinine Ratio 20 (6-26); Blood Urea Nitrogen 24 mg/dL (8-23); Carbon Dioxide 24 mEq/L (23-29); Chloride 105 mEq/L (98-107); Glucose 194 mg/dL (70-105); Osmolality,Calculated 295 (280-300); Potassium 3.9 mEq/L (3.5-5.1); Sodium 138 mEq/L (136-145); eGFR For Non-African Americans 58 (> 60)
[2018-08-18] MEDS: Levothyroxine 25 MCG TABLET PO SCH (05:35)
[2018-08-18] MEDS: *HR* Heparin 5,000 UNIT/ML VIAL SQ SCH ×2 (05:37→16:58)
[2018-08-18 06:04] LABS: Estimated Average Glucose 160 mg/dl; Hemoglobin A1C 7.2 %
[2018-08-18] MEDS ORDERED: diazePAM 10 MG/2 ML SYRINGE IVP ONE (06:14)
[2018-08-18] MEDS: Multivit/Ca/Min/Fe/FA 1 TAB TABLET PO SCH (09:43)
[2018-08-18] MEDS: Magnesium Oxide 400 MG TABLET PO SCH (09:43)
[2018-08-18] MEDS: Cholecalciferol (D-3) 1,000 UNIT TABLET PO SCH (09:43)
[2018-08-18] MEDS: Aspirin Enteric Coated 81 MG Tablet PO SCH (09:43)
[2018-08-18] MEDS: Insulin LISPRO 300 UNITS/3 ML VIAL SQ SCH ×3 (09:44→16:58)
--- NOTE | 2018-08-18 10:09 | Pulmonology Progress Note ---
Addendum entered and electronically signed by Nelia Olvera 08/18/18 15:55: Given Pleural LDH = 238 (greater than 2/3 upper limit of normal); and pleural protein/ serum protein (3.3/6.5 > 0.5), likely that effusion was exudative in origin; follow up pleural fluid cytology Original Note: <Nelia Olvera - Last Filed: 08/18/18 14:04> Date of Encounter: 08/18/18 Time of Encounter: 10:04 Assessment and Plan (1) Acute and chronic respiratory failure with hypoxia Current Visit: Yes Status: Acute This is a 68 y/o M with PMHx significant for dementia, CVA, DMII, HTN, GERD, Schizophrenia who was brought in by niece due to concern of stroke. - Associated with increasing SOB, cough - Pt AOx1 (to name, but not person, place) - Hemodynamically stable on presentation with increasing O2 requirement 4L via NC - Afebrile without leukocytosis CT Chest (08/17/18): - New moderate volume right pleural effusion with progressive bibasilar consolidative opacities and additional right lung perilymphatic nodularity suspicious for neoplastic process. Thoracentesis with fluid analysis (including cytology) should be considered. - Mildly enlarged mediastinal lymph node is indeterminate. Recommend attention on follow-up. - Indeterminate sclerotic focus in the sternum. Recommend attention on follow- up. - S/p thoracentesis yesterday - pending pleural fluid analysis PLAN: Acute respiratory failure with hypoxia likely secondary to pleural effusion and community acquired pneumonia - Given pulmonary nodule, may consider outpatient bronchoscopy at follow up - Cont antibiotics - azithromycin and ceftriaxone for treatment of community acquired pneumonia - Albuterol PRN - Wean O2 as tolerated; titrate to keep O2 sat > 88% - Out of bed to chair, incentive spirometry - Monitor vitals, O2 sat - Follow-up Outpatient Pulmonology (2) Pleural effusion, right Current Visit: Yes Status: Acute CT Chest (08/17/18): - New moderate volume right pleural effusion with progressive bibasilar consolidative opacities and additional right lung perilymphatic nodularity suspicious for neoplastic process. Thoracentesis with fluid analysis (including cytology) should be considered. - Mildly enlarged mediastinal lymph node is indeterminate. Recommend attention on follow-up. - Indeterminate sclerotic focus in the sternum. Recommend attention on follow- up. PLAN: S/p Diagnostic thoracentesis yesterday - Pleural studies negative thus far; follow up cytology - Cont to monitor vitals, monitor O2 sat; titrate to maintain O2 sat > 88% (3) CAP (community acquired pneumonia) Current Visit: Yes Status: Acute Plan as above - monitor for white count, fever Qualifiers: Laterality: unspecified laterality Qualified Code(s): J18.9 - Pneumonia, unspecified organism Subjective Principal diagnosis: Acute and chronic respiratory failure with hypoxia Interval history: Pt seen and examined resting comfortably, eating meal in chair at bedside. S/p diagnostic thoracentesis yesterday. Pt O2 sats appropriate on 4L O2 via NC. Denies any current complaints aside from occasional cough. Otherwise, follows commands, AOx1 (to name). On exam, continues to have decreased lung sounds at b/l bases. However, otherwise no acute findings. Objective PUL Vital signs: Last Vital Signs Temp 97.3 F L 08/18/18 09:33 Pulse 97 08/18/18 09:33 Resp 16 08/18/18 09:33 BP 128/68 08/18/18 09:33 Pulse Ox 93 08/18/18 09:33 General appearance: no acute distress (AOx1), alert Eyes: nonicteric ENT: oropharynx moist Neck: supple Effort: normal Auscultation: bilateral: diminished breath sounds (Diminished breath sounds at b/l lung bases; no wheezes, rales, crackles) Cardiovascular: regular rate and rhythm Gastrointestinal: normoactive bowel sounds, soft, non-tender, non-distended Extremities: no cyanosis, no edema mood appropriate, affect normal Results - Laboratory Findings CBC and BMP: 08/17/18 06:01 08/18/18 04:31 PT/INR, D-dimer PT 13.3 Seconds (9.4-12.1) H 08/17/18 06:01 Abnormal lab findings: Abnormal lab results RBC 3.26 M/mcL (4.19-5.50) L 08/17/18 06:01 Hgb 8.9 g/dL (12.9-16.9) L 08/17/18 06:01 Hct 27.7 % (37.5-50.1) L 08/17/18 06:01 MCH 27.3 pg (28.0-33.3) L 08/17/18 06:01 RDW 19.7 % (11.5-14.5) H 08/17/18 06:01 MPV 9.0 fL (9.4-12.4) L 08/17/18 06:01 PT 13.3 Seconds (9.4-12.1) H 08/17/18 06:01 APTT 37.0 Seconds (26.0-36.0) H 08/17/18 00:51 BUN 24 mg/dL (8-23) H 08/18/18 04:31 Est GFR (Non-Af Amer) 58 (> 60) L 08/18/18 04:31 Glucose 194 mg/dL (70-105) H 08/18/18 04:31 POC Glucose 304 mg/dL (70-99) H 08/17/18 19:41 Hemoglobin A1c 7.2 % (-5.6) H 08/18/18 04:31 Magnesium 1.5 mg/dL (1.6-2.6) L 08/17/18 06:01 Albumin 3.3 g/dL (3.5-5.7) L 08/17/18 06:01 Albumin/Globulin Ratio 1.0 (1.1-2.2) L 08/17/18 06:01 Urine Clarity Cloudy (Clear) A 08/17/18 02:46 Urine Protein 30 mg/dL (Neg-Trace) H 08/17/18 02:46 Urine Blood Trace (Negative) H 08/17/18 02:46 Ur Leukocyte Esterase Moderate (Negative) H 08/17/18 02:46 Urine Microscopic WBC 15-30 per hpf (0-3) H 08/17/18 02:46 Ur Squamous Epith Cells Many per lpf (None-Few) H 08/17/18 02:46 Urine Bacteria Many per hpf (None-Few) H 08/17/18 02:46 Ur Culture Indicated? NO. (NO) A 08/17/18 02:46 Pleural Appearance Cloudy (Clear) A 08/17/18 15:00 - Microbiology Findings Microbiology Findings: Microbiology, Last 48 Hours 08/17/18 15:00 Gram Stain - Final Pleural Fluid 08/17/18 06:01 Blood Culture - Preliminary Peripheral Venipuncture Culture is incubating and being continuously monitored for growth. Final report to follow. 08/17/18 05:57 Blood Culture - Preliminary Peripheral Venipuncture Culture is incubating and being continuously mon itored for growth. Final report to follow. - Clinical Findings Intake & Output: Intake & Output 08/17/18 08/18/18 08/18/18 23:59 07:59 15:59 Intake Total 120 / 120 510 / 510 Balance 120 / 120 510 / 510 Weight 73 kg Consult Discharge Plan - Plan [facility]errals: [facility] [Primary Care Provider[facility] - <Singh Godfrey - Last Filed: 08/18/18 17:08> Date of Encounter: 08/18/18 Objective PUL Vital signs: Last Vital Signs Temp 98.3 F 08/18/18 12:23 Pulse 92 08/18/18 12:23 Resp 18 08/18/18 12:23 BP 138/81 08/18/18 12:23 Pulse Ox 92 08/18/18 12:23 Results - Laboratory Findings CBC and BMP: 08/17/18 06:01 08/18/18 04:31 PT/INR, D-dimer PT 13.3 Seconds (9.4-12.1) H 08/17/18 06:01 Abnormal lab findings: Abnormal lab results RBC 3.26 M/mcL (4.19-5.50) L 08/17/18 06:01 Hgb 8.9 g/dL (12.9-16.9) L 08/17/18 06:01 Hct 27.7 % (37.5-50.1) L 08/17/18 06:01 MCH 27.3 pg (28.0-33.3) L 08/17/18 06:01 RDW 19.7 % (11.5-14.5) H 08/17/18 06:01 MPV 9.0 fL (9.4-12.4) L 08/17/18 06:01 PT 13.3 Seconds (9.4-12.1) H 08/17/18 06:01 APTT 37.0 Seconds (26.0-36.0) H 08/17/18 00:51 BUN 24 mg/dL (8-23) H 08/18/18 04:31 Est GFR (Non-Af Amer) 58 (> 60) L 08/18/18 04:31 Glucose 194 mg/dL (70-105) H 08/18/18 04:31 POC Glucose 304 mg/dL (70-99) H 08/17/18 19:41 Hemoglobin A1c 7.2 % (-5.6) H 08/18/18 04:31 Magnesium 1.5 mg/dL (1.6-2.6) L 08/17/18 06:01 Albumin 3.3 g/dL (3.5-5.7) L 08/17/18 06:01 Albumin/Globulin Ratio 1.0 (1.1-2.2) L 08/17/18 06:01 Urine Clarity Cloudy (Clear) A 08/17/18 02:46 Urine Protein 30 mg/dL (Neg-Trace) H 08/17/18 02:46 Urine Blood Trace (Negative) H 08/17/18 02:46 Ur Leukocyte Esterase Moderate (Negative) H 08/17/18 02:46 Urine Microscopic WBC 15-30 per hpf (0-3) H 08/17/18 02:46 Ur Squamous Epith Cells Many per lpf (None-Few) H 08/17/18 02:46 Urine Bacteria Many per hpf (None-Few) H 08/17/18 02:46 Ur Culture Indicated? NO. (NO) A 08/17/18 02:46 Pleural Appearance Cloudy (Clear) A 08/17/18 15:00 - Microbiology Findings Microbiology Findings: Microbiology, Last 48 Hours 08/17/18 15:00 Gram Stain - Final Pleural Fluid 08/17/18 06:01 Blood Culture - Preliminary Peripheral Venipuncture Culture is incubating and being continuously monitored for growth. Final report to follow. 08/17/18 05:57 Blood Culture - Preliminary Peripheral Venipuncture Culture is incubating and being continuously monitored for growth. Final report to follow. - Clinical Findings Intake & Output: Intake & Output 08/18/18 08/18/18 08/18/18 07:59 15:59 23:59 Intake Total 510 / 510 480 / 480 Balance 510 / 510 480 / 480 Weight 73 kg - Attending Attestation I examined this patient and my medical decision-making was reviewed with the Resident Physician. I agree with the documented findings, disposition and treat ment plan as described except to the extent set forth below. Patient seen and examined. Labs, radiology, chart personally reviewed. 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 Reviewed pleural effusion which is suggestive of exudative and will need serum LDH since the numbers are borderline which can be fine sometimes in transudate if patient is on diuretics. We need to wait for cytology to have further recommendations.
--- NOTE | 2018-08-18 10:56 | Internal Med Progress Note ---
<Emiliano Staton P - Last Filed: 08/18/18 11:13> Hospitalist Progress Note - Encounter Date of Encounter: 08/18/18 Time of Encounter: 10:00 - Subjective Interval History: 68 year old male with a past medical history of dementia, CVA, diabetes type 2, hypertension, GERD and schizophrenia who was brought in by his niece who is his waterproofer due to concern for stroke.Patient has a history of prior CVA with some mild right-sided residual weakness and mild right facial droop. CT chest showed bibasilar consolidative opacity and right lung perilymphatic nodularity suspicious for neoplastic process and enlarged mediastinal lymph node. MRI head no evidence of infraction or blood clot. Echocardiogram; ejection fraction 55% with left ventricular hypertrophy with normal ventricular function.Head CT:Chronic small ischemic disease and scattered infarcts both basal ganglia regions and right cerebellum.Xray Chest:Bibasilar airspace disease and atelectasis with right pleural effusion. Today the patient was lying on the bed, saturation was 93% on room air, other vitals were stable, he is not febrile, symptomatically a little bit better than before. Pulmonary consultation has been done. We are waiting for thoracocentesis/ pleural fluid report. We will follow-up neurology tech recommendation. - Exam Vitals: Temp Pulse Resp BP Pulse Ox 97.3 F L 97 16 128/68 93 08/18/18 09:33 08/18/18 09:33 08/18/18 09:33 08/18/18 09:33 08/18/18 09:33 Exam: General: Alert and oriented 1 Skin:Normal color, no rash, no lesions. HEENT:EOM, pupils equal, round and reactive. Cardiovascular:Normal S1 & S2, no rubs, murmurs or gallops. No JVD. Pulse regular. Lungs:Normal breath sounds, no wheezes or crackles. Abdomen:Soft, non-tender, no rigidity. Extremities:No deformity, no edema or tenderness, no joint swelling or clubbing. Neurological: Cranial nerves II through XII intact. Muscle strength in the upper and lower extremity on the right 4 out of 5. Upper and lower extremity muscle strength 5 out of 5 on the left. Sensation intact. Pulses:Carotid and radial pulses normal +2. Rest of the physical exam is non contributory - Assessment and Plan (1) Slurred speech Current Visit: Yes Status: Acute Assessment and Plan: The patient has slurred speech, but he stated that it is getting better Recent has history of a stroke with right-sided hemiparesis in the past. May be feature of Dementia , may be due to Stroke CT head normal finding MRI head :No acute infarct. We didnot appreciate any new development of focal neurological deficit during examination, he has slight residual weakness in right side. He is already on aspirin and Lipitor (2) Pleural effusion Current Visit: Yes Status: Acute Assessment and Plan: CT chest : New moderate volume right pleural effusion with progressive bibasilar consolidative opacities and additional right lung perilymphatic nodularity suspicious for neoplastic process. Bsa/Aml Compliance Officer has been consulted, and 25 mL serosanguineous pleural effusion aspirated and sent for cytology and routine examination We will follow-up their advice. (3) CAP (community acquired pneumonia) Current Visit: Yes Status: Acute Assessment and Plan: ptient reports history of cough. Appears to be congested on physical examination. Low lung sounds are not clear , occasional creps present with expiatory rhonhi ,it might be due to bacterial infection/community acquired pneumonia CT chest :Bibasilar atelectasis and consolidative opacities The patient is on azithromycin and ceftriaxone (4) Acute respiratory failure with hypoxia Current Visit: Yes Status: Acute Assessment and Plan: The patient has shortness of breath, saturation 93% with 4L oxygen on and off It might be because of right-sided pleural effusion with infection He is on IV antibiotic for infection , consulted neurology tech , appreciate recommendation (5) NORTH (acute kidney injury) Current Visit: Yes Status: Acute Assessment and Plan: Recent has impaired renal function during admission,It might be due to dehydration BUN 27 creatinine 1.43 GFR 49, patient creatinine is 1.23 and BUN 24 Renal function has been gradually normalized. (6) Diabetes Current Visit: No Status: Acute Assessment and Plan: The patient is chronic diabetes He is on insulin sliding scale Glucose 194 A1C 7.2 (7) DVT prophylaxis Current Visit: Yes Status: Acute Assessment and Plan: He is on heparin SQ 5000 twice a day as a DVT prophylaxis - Time Spent with Patient Total time spent is greater than 50% in coordination of care (as documented) at patient's floor/unit and/or counseling patient: Internal Medicine: Result - Labs CBC & Chem 7: 02/04/19 06:01 08/18/18 04:31 Labs: BMP 08/18/18 04:31 Sodium 138 Potassium 3.9 Chloride 105 Carbon Dioxide 24 BUN 24 H Creatinine 1.23 Glucose 194 H Calcium 9.0 - ABG Interpretation ABG results: PT/INR, D-dimer PT 13.3 Seconds (9.4-12.1) H 08/17/18 06:01 - Impressions Impressions Brain MRI 08/17/18 04:55 IMPRESSION: No acute infarct. D/ / Peterson Delarosa MD / Peterson Delarosa MD Interpreting Provider: Peterson Delarosa MD Echocardiogram 08/17/18 07:47 Impressions: LVEF 55%. Mild concentric left ventricular hypertrophy. Normal left ventricular diastolic function. Normal right ventricular structure and function. No evidence of PFO with agitated saline contrast. Mild mitral stenosis. Mean transmitral gradient is 6 mmHg at HR of 96/min Unable to estimate RVSP due to lack of TR jet. Left Ventricular Wall Motion: Rest Echo Findings All wall segments showed normal motion. Findings: Study Quality * Technically sub-optimal due to poor echocardiographic windows. ECG Findings * Normal sinus rhythm. Left Ventricle * LVEF 55%. * Mild concentric left ventricular hypertrophy. * Normal left ventricular diastolic function. Right Ventricle * Normal right ventricular structure and function. Left Atrium * Normal left atrial size. Right Atrium * Normal right atrial size. Interatrial Septum * No evidence of PFO with agitated saline contrast. Aortic Valve * Aortic valve not well visualized. * No aortic regurgitation. * No aortic stenosis. Mitral Valve * Mild mitral annular calcification * Mild mitral stenosis. Mean transmitral gradient is 6 mmHg at HR of 96/min * Mean transmitral gradient is 6 mmHg. * Trace mitral regurgitation. Tricuspid Valve * Normal tricuspid valve structure. * Unable to estimate RVSP due to lack of TR jet. * No tricuspid stenosis. * Trace tricuspid regurgitation. Pulmonic Valve * Pulmonic valve is not well visualized. Aorta * Normally sized aortic root. Pericardium * The pericardium appears normal. IVC * The IVC is not well evaluated. Chest X-Ray 08/17/18 15:05 IMPRESSION: 1. Status post thoracentesis with no pneumothorax. 2. Stable lung base consolidative changes. D/ / 08/17/2018 15:34:25 Rober Ronquillo MD / [facility] Interpreting Provider: Rober Ronquillo MD Consult Discharge Plan - Plan [facility]errals: [facility]Primary Care Provider[facility] - <Bharti Herron - Last Filed: 08/18/18 13:59> Hospitalist Progress Note - Encounter Date of Encounter: 08/18/18 - Exam Vitals: Temp Pulse Resp BP Pulse Ox 98.3 F 92 18 138/81 92 08/18/18 12:23 08/18/18 12:23 08/18/18 12:23 08/18/18 12:23 08/18/18 12:23 - Assessment and Plan (1) Diabetes Current Visit: No Status: Acute (2) CAP (community acquired pneumonia) Current Visit: Yes Status: Acute (3) Altered mental status Current Visit: Yes Status: Acute (4) Pleural effusion Current Visit: Yes Status: Acute (5) Acute kidney injury Current Visit: Yes Status: Acute (6) DVT prophylaxis Current Visit: Yes Status: Acute (7) Slurred speech Current Visit: Yes Status: Acute - Time Spent with Patient Total time spent is greater than 50% in coordination of care (as documented) at patient's floor/unit and/or counseling patient: Internal Medicine: Result - Labs CBC & Chem 7: 08/17/18 06:01 08/18/18 04:31 Labs: BMP 08/18/18 04:31 Sodium 138 Potassium 3.9 Chloride 105 Carbon Dioxide 24 BUN 24 H Creatinine 1.23 Glucose 194 H Calcium 9.0 - ABG Interpretation ABG results: PT/INR, D-dimer PT 13.3 Seconds (9.4-12.1) H 08/17/18 06:01 - Impressions Impressions Brain MRI 08/17/18 04:55 IMPRESSION: No acute infarct. D/ / Peterson Delarosa MD / Peterson Delarosa MD Interpreting Provider: Peterson Delarosa MD Echocardiogram 08/17/18 07:47 Impressions: LVEF 55%. Mild concentric left ventricular hypertrophy. Normal left ventricular diastolic function. Normal right ventricular structure and function. No evidence of PFO with agitated saline contrast. Mild mitral stenosis. Mean transmitral gradient is 6 mmHg at HR of 96/min Unable to estimate RVSP due to lack of TR jet. Left Ventricular Wall Motion: Rest Echo Findings All wall segments showed normal motion. Findings: Study Quality * Technically sub-optimal due to poor echocardiographic windows. ECG Findings * Normal sinus rhythm. Left Ventricle * LVEF 55%. * Mild concentric left ventricular hypertrophy. * Normal left ventricular diastolic function. Right Ventricle * Normal right ventricular structure and function. Left Atrium * Normal left atrial size. Right Atrium * Normal right atrial size. Interatrial Septum * No evidence of PFO with agitated saline contrast. Aortic Valve * Aortic valve not well visualized. * No aortic regurgitation. * No aortic stenosis. Mitral Valve * Mild mitral annular calcification * Mild mitral stenosis. Mean transmitral gradient is 6 mmHg at HR of 96/min * Mean transmitral gradient is 6 mmHg. * Trace mitral regurgitation. Tricuspid Valve * Normal tricuspid valve structure. * Unable to estimate RVSP due to lack of TR jet. * No tricuspid stenosis. * Trace tricuspid regurgitation. Pulmonic Valve * Pulmonic valve is not well visualized. Aorta * Normally sized aortic root. Pericardium * The pericardium appears normal. IVC * The IVC is not well evaluated. Chest X-Ray 08/17/18 15:05 IMPRESSION: 1. Status post thoracentesis with no pneumothorax. 2. Stable lung base consolidative changes. D/ / 08/17/2018 15:34:25 Rober Ronquillo MD / [facility] Interpreting Provider: Rober Ronquillo MD - Attending Attestation I examined this patient and my medical decision-making was reviewed with the Resident Physician Dr. Staton. I agree with the documented findings, disposition and treatment plan as described except to the extent set forth below. Mr. Giles is a 68 year old male with a past medical history of dementia, CVA, diabetes type 2, hypertension, GERD and schizophrenia who was brought in by his niece who is his waterproofer due to concern for stroke with slurred speech. Also patient noted to be hypoxic and requiring 4 lit oxygen in the ER. His CT Imaging of the head, chest abdomen and pelvis was performed which showed a new more traitor right pleural effusion with progressive basilar consolidate opacities. He was admitted in the hospital and placed him on satellite project site monitor. He was started on empirical antibiotic ceftriaxone azithromycin. No events over night Gen: A, A, O to self only.. Pleasantly demented Chest: diminished breath sounds bilaterally more significant in the right side, no rales, crackles+ Heart: S1S2 + RRR No murmurs a/p 1. Acute hypoxic respiratory failure 2. Rt pleural effusion 3. Acute CAP - mostly bacterial 4. Lung nodules cont empirical abx Rocephin + Azithromycin Duoneb Cont O2 s/p thoracocentesis - removed only 20 CC Pleural fluid analysis seems to be exudate will f/u on cytology 4. Slurred speech mostly due to advanced dementia improved now Brain MRI no acute infraction Cont ASA and Statin <ToniungEmiliano hoover P - Last Filed: 08/18/18 11:13> (6) Diabetes Qualifiers: Diabetes mellitus type: type 2 Diabetes mellitus exterminator helper insulin use: with exterminator helper use Diabetes mellitus complication status: with unspecified complications Qualified Code(s): E11.8 - Type 2 diabetes mellitus with unspecified complications; Z79.4 - MCFP (current) use of insulin; Z79.4 - intermediate accountant (current) use of insulin; Z79.4 - MCFP (current) use of insulin; Z79.4 - MCFP (current) use of insulin <Bharti Herron - Last Filed: 08/18/18 13:59> (1) Diabetes Qualifiers: Diabetes mellitus type: type 2 Diabetes mellitus exterminator helper insulin use: with residential use Diabetes mellitus complication status: with unspecified complications Qualified Code(s): E11.8 - Type 2 diabetes mellitus with unspecified complications; Z79.4 - intermediate accountant (current) use of insulin; Z79.4 - MCFP (current) use of insulin; Z79.4 - MCFP (current) use of insulin; Z79.4 - MCFP (current) use of insulin (2) CAP (community acquired pneumonia) Qualifiers: Laterality: unspecified laterality Qualified Code(s): J18.9 - Pneumonia, unspecified organism (3) Altered mental status Qualifiers: Altered mental status type: unspecified Qualified Code(s): R41.82 - Altered mental status, unspecified
[2018-08-18 15:58] LABS: Adenovirus Not Detected (Not Detect); Bordetella Pertussis Not Detected (Not Detect); Chlamydophila pneumoniae Not Detected (Not Detect); Coronavirus 229E Not Detected (Not Detect); Coronavirus HKU1 Not Detected (Not Detect); Coronavirus NL63 Not Detected (Not Detect); Coronavirus OC43 Not Detected (Not Detect); Human Metapneumovirus Not Detected (Not Detect); Human Rhinovirus/Enterovirus Not Detected (Not Detect); Influenza A Subtype 2009 H1 Not Detected (Not Detect); Influenza A Untypeable Not Detected (Not Detect); Influenza B Not Detected (Not Detect); Mycoplasma pneumoniae Not Detected (Not Detect); Parainfluenza Virus 1 Not Detected (Not Detect); Parainfluenza Virus 2 Not Detected (Not Detect); Parainfluenza Virus 3 Not Detected (Not Detect); Parainfluenza Virus 4 Not Detected (Not Detect); Respiratory Syncytial Virus Not Detected (Not Detect)
[2018-08-19] MEDS: cefTRIAXone 1,000 MG in Water for inj. (sterile) 20 ML 10 ML IVPB SCH (02:10)
[2018-08-19] MEDS: Azithromycin 500 MG in D5% in Water 250 ML IVPB SCH (02:12)
[2018-08-19 05:11] LABS: Hematocrit 28.3 % (37.5-50.1); Hemoglobin 9.2 g/dL (12.9-16.9); Mean Corpuscular HGB Conc 32.5 g/dL (31.6-35.5); Mean Corpuscular Hemoglobin 27.3 pg (28.0-33.3); Mean Platelet Volume 9.1 fL (9.4-12.4); Platelet Count 181 K/mcL (140-400); Red Blood Count 3.37 M/mcL (4.19-5.50)
[2018-08-19] MEDS: *HR* Heparin 5,000 UNIT/ML VIAL SQ SCH ×2 (05:30→18:14)
[2018-08-19 05:34] LABS: BUN/Creatinine Ratio 24 (6-26); Blood Urea Nitrogen 24 mg/dL (8-23); Carbon Dioxide 22 mEq/L (23-29); Chloride 108 mEq/L (98-107); Glucose 201 mg/dL (70-105); Osmolality,Calculated 302 (280-300); Sodium 141 mEq/L (136-145); eGFR For Non-African Americans > 60 (> 60)
[2018-08-19] MEDS: Levothyroxine 25 MCG TABLET PO SCH (05:35)
[2018-08-19] MEDS: Magnesium Oxide 400 MG TABLET PO SCH (08:24)
[2018-08-19] MEDS: Cholecalciferol (D-3) 1,000 UNIT TABLET PO SCH (08:24)
[2018-08-19] MEDS: Aspirin Enteric Coated 81 MG Tablet PO SCH (08:24)
[2018-08-19] MEDS: Multivit/Ca/Min/Fe/FA 1 TAB TABLET PO SCH (08:24)
[2018-08-19] MEDS: Insulin LISPRO 300 UNITS/3 ML VIAL SQ SCH ×3 (08:25→18:15)
--- NOTE | 2018-08-19 08:57 | Pulmonology Progress Note ---
<Nelia Olvera - Last Filed: 08/19/18 11:00> Date of Encounter: 08/19/18 Time of Encounter: 08:54 Assessment and Plan (1) Acute and chronic respiratory failure with hypoxia Current Visit: Yes Status: Acute This is a 68 y/o M with PMHx significant for dementia, CVA, DMII, HTN, GERD, Schizophrenia who was brought in by niece due to concern of stroke. - Associated with increasing SOB, cough - Pt AOx1 (to name, but not person, place) - Hemodynamically stable on presentation with increasing O2 requirement 4L via NC - Afebrile without leukocytosis CT Chest (08/17/18): - New moderate volume right pleural effusion with progressive bibasilar consolidative opacities and additional right lung perilymphatic nodularity suspicious for neoplastic process. Thoracentesis with fluid analysis (including cytology) should be considered. - Mildly enlarged mediastinal lymph node is indeterminate. Recommend attention on follow-up. - Indeterminate sclerotic focus in the sternum. Recommend attention on follow- up. - S/p thoracentesis yesterday - pending pleural fluid analysis PLAN: Acute respiratory failure with hypoxia likely secondary to pleural effusion and community acquired pneumonia - Given pulmonary nodule, may consider outpatient bronchoscopy at follow up - Cont antibiotics - azithromycin and ceftriaxone for treatment of community acquired pneumonia; with clinical improvement, may consider dc abx after 5days total - Albuterol PRN - Wean O2 as tolerated; titrate to keep O2 sat > 88% - Out of bed to chair, incentive spirometry - Monitor vitals, O2 sat - Follow-up Outpatient Pulmonology - Repeat CT Chest in 6 weeks; Follow up outpatient pulmonology after repeat CT Scan (2) Pleural effusion, right Current Visit: Yes Status: Acute CT Chest (08/17/18): - New moderate volume right pleural effusion with progressive bibasilar consolidative opacities and additional right lung perilymphatic nodularity suspicious for neoplastic process. Thoracentesis with fluid analysis (including cytology) should be considered. - Mildly enlarged mediastinal lymph node is indeterminate. Recommend attention on follow-up. - Indeterminate sclerotic focus in the sternum. Recommend attention on follow- up. PLAN: S/p Diagnostic thoracentesis - Cont to monitor vitals, monitor O2 sat; titrate to maintain O2 sat > 88% - Given Pleural LDH = 238 (greater than 2/3 upper limit of normal); and pleural protein/ serum protein (3.3/6.5 > 0.5), likely that effusion was exudative in origin - Follow up Pleural Fluid Cytology (3) CAP (community acquired pneumonia) Current Visit: Yes Status: Acute Pt remains afebrile without leukocytosis; with clinical improvement, may dc antibiotics after 5 days - Monitor for white count, fever - Cont O2 supplementation; wean as tolerated Qualifiers: Laterality: unspecified laterality Qualified Code(s): J18.9 - Pneumonia, unspecified organism Subjective Principal diagnosis: Acute and chronic respiratory failure with hypoxia Interval history: Pt seen and examined resting comfortably in bed in no acute distress. S/p diagnostic thoracentesis. O2 sats appropriate on 4L O2 via NC. Notes cough, mild abdominal pain, but otherwise denies any complaints. Able to follow commands. On exam, lung sounds improving - no wheezes, rales, crackles. Cont to have decreased lung sounds at b/l lung bases. Pleural studies show exudative fluid. Pending pleural fluid cytology at this point. Otherwise pt remains afebrile without leukocytosis. Objective PUL Vital signs: Last Vital Signs Temp 98.2 F 08/19/18 07:48 Pulse 91 08/19/18 07:48 Resp 16 08/19/18 07:48 BP 161/89 08/19/18 07:48 Pulse Ox 92 08/19/18 07:48 General appearance: no acute distress, alert Eyes: nonicteric ENT: oropharynx moist Effort: normal Auscultation: bilateral: diminished breath sounds (Improving but diminished breath sounds and b/l lung bases; no wheezes, rales, crackles) Cardiovascular: regular rate and rhythm Gastrointestinal: normoactive bowel sounds, soft, tender (Mild tenderness to palpation at RUQ; no rebound, guarding, rigidity; bowel sounds present), non- distended Extremities: no edema normal mental status (AO x 1; follow commands) mood appropriate, affect normal Results - Laboratory Findings CBC and BMP: 08/19/18 04:30 08/19/18 04:30 PT/INR, D-dimer PT 13.3 Seconds (9.4-12.1) H 08/17/18 06:01 Abnormal lab findings: Abnormal lab results RBC 3.37 M/mcL (4.19-5.50) L 08/19/18 04:30 Hgb 9.2 g/dL (12.9-16.9) L 08/19/18 04:30 Hct 28.3 % (37.5-50.1) L 08/19/18 04:30 MCH 27.3 pg (28.0-33.3) L 08/19/18 04:30 RDW 19.0 % (11.5-14.5) H 08/19/18 04:30 MPV 9.1 fL (9.4-12.4) L 08/19/18 04:30 PT 13.3 Seconds (9.4-12.1) H 08/17/18 06:01 APTT 37.0 Seconds (26.0-36.0) H 08/17/18 00:51 Chloride 108 mEq/L (98-107) H 08/19/18 04:30 Carbon Dioxide 22 mEq/L (23-29) L 08/19/18 04:30 BUN 24 mg/dL (8-23) H 08/19/18 04:30 Glucose 201 mg/dL (70-105) H 08/19/18 04:30 POC Glucose 279 mg/dL (70-99) H 08/18/18 20:25 Hemoglobin A1c 7.2 % (-5.6) H 08/18/18 04:31 Calculated Osmolality 302 (280-300) H 08/19/18 04:30 Magnesium 1.5 mg/dL (1.6-2.6) L 08/17/18 06:01 Albumin 3.3 g/dL (3.5-5.7) L 08/17/18 06:01 Albumin/Globulin Ratio 1.0 (1.1-2.2) L 08/17/18 06:01 Urine Clarity Cloudy (Clear) A 08/17/18 02:46 Urine Protein 30 mg/dL (Neg-Trace) H 08/17/18 02:46 Urine Blood Trace (Negative) H 08/17/18 02:46 Ur Leukocyte Esterase Moderate (Negative) H 08/17/18 02:46 Urine Microscopic WBC 15-30 per hpf (0-3) H 08/17/18 02:46 Ur Squamous Epith Cells Many per lpf (None-Few) H 08/17/18 02:46 Urine Bacteria Many per hpf (None-Few) H 08/17/18 02:46 Ur Culture Indicated? NO. (NO) A 08/17/18 02:46 Pleural Appearance Cloudy (Clear) A 08/17/18 15:00 - Microbiology Findings Microbiology Findings: Microbiology, Last 48 Hours 08/17/18 15:00 Gram Stain - Final Pleural Fluid 08/17/18 06:01 Blood Culture - Preliminary Peripheral Venipuncture Culture is incubating and being continuously monitored for growth. Final report to follow. 08/17/18 05:57 Blood Culture - Preliminary Peripheral Venipuncture Culture is incubating and being continuously monitored for growth. Final report to follow. - Clinical Findings Intake & Output: Intake & Output 08/18/18 08/19/18 08/19/18 23:59 07:59 15:59 Output Total 300 / 300 Balance -300 / -300 Weight 73.3 kg Consult Discharge Plan - Plan [facility]errals: [facility] [Primary Care Provider[facility] - Prescriptions: Cephalexin [Keflex] 500 mg PO TID #12 capsule Furosemide [Lasix] 20 mg PO DAILY #30 tablet <Singh Godfrey - Last Filed: 08/20/18 07:20> Date of Encounter: 08/20/18 Objective PUL Vital signs: Last Vital Signs Temp 97.8 F 08/20/18 02:53 Pulse 95 08/20/18 02:53 Resp 16 08/20/18 02:53 BP 129/72 08/20/18 02:53 Pulse Ox 92 08/20/18 02:53 Results - Laboratory Findings CBC and BMP: 08/20/18 03:14 08/20/18 03:14 PT/INR, D-dimer PT 13.3 Seconds (9.4-12.1) H 08/17/18 06:01 Abnormal lab findings: Abnormal lab results RBC 3.44 M/mcL (4.19-5.50) L 08/20/18 03:14 Hgb 9.4 g/dL (12.9-16.9) L 08/20/18 03:14 Hct 29.8 % (37.5-50.1) L 08/20/18 03:14 MCH 27.3 pg (28.0-33.3) L 08/20/18 03:14 MCHC 31.5 g/dL (31.6-35.5) L 08/20/18 03:14 RDW 18.8 % (11.5-14.5) H 08/20/18 03:14 MPV 9.3 fL (9.4-12.4) L 08/20/18 03:14 PT 13.3 Seconds (9.4-12.1) H 08/17/18 06:01 APTT 37.0 Seconds (26.0-36.0) H 08/17/18 00:51 BUN 31 mg/dL (8-23) H 08/20/18 03:14 Est GFR (Non-Af Amer) 57 (> 60) L 08/20/18 03:14 Glucose 475 mg/dL (70-105) H 08/20/18 03:14 POC Glucose 243 mg/dL (70-99) H 08/19/18 11:01 Hemoglobin A1c 7.2 % (-5.6) H 08/18/18 04:31 Calculated Osmolality 313 (280-300) H 08/20/18 03:14 Albumin 3.3 g/dL (3.5-5.7) L 08/17/18 06:01 Albumin/Globulin Ratio 1.0 (1.1-2.2) L 08/17/18 06:01 Urine Clarity Cloudy (Clear) A 08/17/18 02:46 Urine Protein 30 mg/dL (Neg-Trace) H 08/17/18 02:46 Urine Blood Trace (Negative) H 08/17/18 02:46 Ur Leukocyte Esterase Moderate (Negative) H 08/17/18 02:46 Urine Microscopic WBC 15-30 per hpf (0-3) H 08/17/18 02:46 Ur Squamous Epith Cells Many per lpf (None-Few) H 08/17/18 02:46 Urine Bacteria Many per hpf (None-Few) H 08/17/18 02:46 Ur Culture Indicated? NO. (NO) A 08/17/18 02:46 Pleural Appearance Cloudy (Clear) A 08/17/18 15:00 - Clinical Findings Intake & Output: Intake & Output 08/19/18 08/19/18 08/20/18 15:59 23:59 07:59 Weight 72.6 kg - Attending Attestation This documentation was done on 08/20/2018, however patient was seen and examined and plan discussed with the resident on 08/19/2018 I examined this patient and my medical decision-making was reviewed with the Resident Physician. I agree with the documented findings, disposition and treatment plan as described except to the extent set forth below. Patient seen and examined. Labs, radiology, chart personally reviewed. 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 Ideally patient will need to have a follow-up images such as CT chest in about 6-8 weeks and can follow-up as outpatient and if necessary then we can arrange bronchoscopy otherwise to monitor. If family does not wish to do that, that is understandable and please call for any questions. Following On cytology result from the pleural fluid.
[2018-08-19 09:48] LABS: Lactate Dehydrogenase 169 Units/L (140-271)
--- NOTE | 2018-08-19 11:22 | Discharge Summary ---
- NOTES TO OUTPATIENT PROVIDER Notes to Outpatient Provider: Follow up with PCP in one week. Follow-up with pulmonary Dr. Godfrey in one week Orders not resulted at time of discharge: Pending orders 08/17/18 06:01 Culture,Blood [BC] Stat 08/17/18 16:21 Culture,Sputum with Gram Stain [RM] Routine Cytology [PTH] Routine Date of Encounter: 08/20/18 Time of Encounter: 11:20 - Discharge Diagnosis (1) CAP (community acquired pneumonia) Priority: Primary Status: Acute Qualifiers: Laterality: unspecified laterality Qualified Code(s): J18.9 - Pneumonia, unspecified organism (2) Altered mental status Priority: Primary Status: Acute Qualifiers: Altered mental status type: unspecified Qualified Code(s): R41.82 - Altered mental status, unspecified (3) Pleural effusion Priority: Primary Status: Acute (4) Acute kidney injury Priority: Primary Status: Acute (5) DVT prophylaxis Priority: Secondary Status: Acute (6) Slurred speech Priority: Secondary Status: Acute (7) Diabetes Priority: Secondary Status: Acute Qualifiers: Diabetes mellitus type: type 2 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 Giles is a 68 year old male with a past medical history of dementia, CVA, diabetes type 2, hypertension, GERD and schizophrenia who was brought in by his niece who is his molding engineer due to concern for stroke with slurred speech. Also patient noted to be hypoxic and requiring 4 lit oxygen in the ER. His CT Imaging of the head, chest abdomen and pelvis was performed which showed a new moderate right pleural effusion with progressive basilar consolidate opacities and lung nodules concerning for neoplastic process. He was admitted in the hospital and placed him on nuclear monitoring technician. He was evaluated by Academic Affairs Manager for his Rt side pleural effusion and lung nodules. He had diagnostic thoracocentesis which seems more like exudate and cytology is still pending. His pulmonary nodules look more like neoplastic process. I did talk to patients daughter Jane @ [phone], she does not want to proceed with any further aggressive invasive workup such as bronchoscopy. However she would like to follow up with the pulmonary as an outpatient, so will arrange that. He was started on empirical antibiotic ceftriaxone and azithromycin. He is currently on 4 lit O2, will do home O2 eval before he goes home. Pt was evaluated by PT/OT who recommended ECF placement. However patient's family want to take him home with home health services. [facility] have [facility]. Will discharge him home in a stable condition today with home health services. - Time Spent with Patient Total time spent providing and/or coordinating discharge services: - Discharge Medications Prescriptions: Cephalexin [Keflex] 500 mg PO TID #12 capsule Furosemide [Lasix] 20 mg PO DAILY #30 tablet Home Medications: Alendronate Sodium [Binosto] 70 mg PO QWEEK 11/02/17 [History] Aspirin Enteric Coated [Aspirin EC] 81 mg PO DAILY 11/02/17 [History] Insulin Glargine [Lantus] 13 unit SQ QPM 11/02/17 [History] Magnesium Oxide [Mag-Ox] 400 mg PO DAILY 11/02/17 [History] Multivit-Min/FA/Lycopen/Lutein [Adults 50+ Multivitamin Tablet] 1 tab PO DAILY 11/02/17 [History] Pantoprazole Sodium [Protonix] 40 mg PO DAILY 11/02/17 [History] Prazosin HCl [Minipress] 2 mg PO HS 11/02/17 [History] metFORMIN [Glucophage] 500 mg PO BIDWM 11/02/17 [History] traZODone [TraZODone] 50 mg PO HS 11/02/17 [History] Albuterol Sulfate [Albuterol Inhaler] 2 puff IH Q6HR PRN 08/17/18 [History] Ferrous Sulfate [Iron] 325 mg PO BID 08/17/18 [History] Aloe Vera/Collagen [Aloe [place] Cleansing Foam] 1 appl TP AD PRN 08/18/18 [History] Atorvastatin Calcium [Lipitor] 10 mg PO QPM 08/18/18 [History] Cholecalciferol (Vitamin D3) [Vitamin D3] 2,000 unit PO DAILY 08/18/18 [History] Levothyroxine [Synthroid] 25 mcg PO DAILY 08/18/18 [History] Lisinopril [Zestril] 2.5 mg PO DAILY 08/18/18 [History] Miconazole Nitrate [Aloe [place]] 1 appl TP BID PRN 08/18/18 [History] Nut.tx.gluc.intoler,Lac-Fr,Soy [Glucerna] 1 can PO TID 08/18/18 [History] Quetiapine Fumarate [Seroquel] 25 mg PO HS 08/18/18 [History] amLODIPine [Norvasc] 5 mg PO DAILY 08/18/18 [History] Cephalexin [Keflex] 500 mg PO TID #12 capsule 08/19/18 [Rx] Furosemide [Lasix] 20 mg PO DAILY #30 tablet 08/19/18 [Rx] Allergies/Adverse Reactions: Allergy/AdvReac Type Severity Reaction Status Date / Time adhesive AdvReac Rash Verified 11/02/17 00:15 Penicillins AdvReac See Verified 08/18/18 13:42 Comments Date of admission: 08/17/18 04:53 Primary care physician: [facility] Consults: 08/17/18 06:49 Consult to Pulmonology [CONS] Routine Consulting Provider: Pulm [facility] Sleep Della Reason for Consult: New finding of a large pleural effusion concerning for underlying neoplastic process Call Completed: No 08/17/18 08:49 Consult to Nurse Navigator [CONS] Routine Comment: PNEUMONIA 08/17/18 14:00 Consult to Occupational Therapy [CONS] Routine Comment: Evaluate, develop and implement POC Reason for Consult: pt lives at home with alejandra who provides all his care. evaluate for home needs or rehab. Does patient have active BEDREST order?: No Is patient medically & hemodynamically stable?: Yes Consult to Physical Therapy [CONS] Routine Comment: Evaluate, develop and implement POC Reason for Consult: pt lives at home with alejandra who provides all his care. evaluate for home needs or rehab. Does patient have active BEDREST order?: No Is patient medically & hemodynamically stable?: Yes - Constitutional Vitals: Temp Pulse Resp BP Pulse Ox 97.8 F 89 18 149/85 96 08/19/18 10:58 08/19/18 10:58 08/19/18 10:58 08/19/18 10:58 08/19/18 10:58 General appearance: Present: A&O X 1, no acute distress, answers questions appropriately Exam: Gen: Alert, awake, Oriented to self only. Pleasantly demented Chest: Diminished breath sounds B/L, No wheezing, mild crackles at basal regions, No rales Heart: S1S2+ RRR No murmurs Abd: Soft, NT, BS +, No organomegaly Ext: trace edema, pulses are palpable, No calf tenderness Neuro : demented Skin: No rash. - Patient Status Disposition: Home Health Service Condition: Good Overall status at discharge: patient is back to baseline - Discharge Instructions Follow Up With: [facility] [Primary Care Provider[facility] - Singh Godfrey MD [Partnered Physician] - - Diet and Activity Activity: as per physical therapy, increase activity as tolerated, wear oxygen at all times Diet: low salt diet
--- NOTE | 2018-08-19 11:27 | Internal Med Progress Note ---
Hospitalist Progress Note - Encounter Date of Encounter: 08/19/18 Time of Encounter: 11:25 - Subjective Interval History: Mr. Giles is a 68 year old male with a past medical history of dementia, CVA, diabetes type 2, hypertension, GERD and schizophrenia who was brought in by his niece who is his pick up attendant due to concern for stroke with slurred speech. Also patient noted to be hypoxic and requiring 4 lit oxygen in the ER. His CT Imaging of the head, chest abdomen and pelvis was performed which showed a new moderate right pleural effusion with progressive basilar consolidate opacities and lung nodules concerning for neoplastic process. He was admitted in the hospital and placed him on rn cardiac cath. He was started on empirical antibiotic cef triaxone and azithromycin. No events over night. He is still on 4 lit O2. Talked to patients daughter and explained to her about current care. She does not want to proceed with any aggressive invasive workup regarding lung nodules. - Exam Vitals: Temp Pulse Resp BP Pulse Ox 97.6 F 91 18 175/99 96 08/19/18 11:23 08/19/18 11:23 08/19/18 11:23 08/19/18 11:23 08/19/18 11:23 Exam: Gen: Alert, awake, Oriented to self only. Pleasantly demented Chest: Diminished breath sounds B/L, No wheezing, mild crackles at basal regions, No rales Heart: S1S2+ RRR No murmurs Abd: Soft, NT, BS +, No organomegaly Ext: trace edema, pulses are palpable, No calf tenderness Neuro : demented Skin: No rash. - Assessment and Plan (1) CAP (community acquired pneumonia) Current Visit: Yes Status: Acute Assessment and Plan: Improving mostly bacterial continue empirical antibiotic Rocephin and azithromycin # 3/ (2) Acute respiratory failure with hypoxia Current Visit: Yes Status: Acute Assessment and Plan: Due to pneumonia and pleural effusion may need home O2 eval will talk to RT/CM (3) Altered mental status Current Visit: Yes Status: Acute Assessment and Plan: Mostly due to advanced dementia ruled out stroke continue close monitoring fall precautions (4) Pleural effusion Current Visit: Yes Status: Acute Assessment and Plan: CT scan of the chest shows a new moderate volume right-sided pleural effusion with progressive bibasilar consolidative opacities and additional right lung perilymphatic nodularity suspicious for neoplastic process. Had diagnostic thoracocentesis fluid looks more like exudate concerning for malignancy waiting for cytology appreciate pulmonary recommendations talked to patients daughter Jane @ [phone], she does not want to proceed with any further aggressive invasive workup such as bronchoscopy. However she would like to follow up with the pulmonary as an outpatient, so will arrange that. Started him on IV Lasix (5) Acute kidney injury Current Visit: Yes Status: Acute Assessment and Plan: Acute kidney injury with a creatinine of 1.71. Baseline appears to be around 1.1. Improved (6) DVT prophylaxis Current Visit: Yes Status: Acute Assessment and Plan: Pneumatic compression devices (7) Slurred speech Current Visit: Yes Status: Acute Assessment and Plan: Reviewed her brain MRI no acute infarction noticed continue aspirin and Statin (8) Diabetes Current Visit: No Status: Acute Assessment and Plan: ADA diet ISS (9) Physical deconditioning Current Visit: Yes Status: Acute Assessment and Plan: PT/OT eval done recommended ECF placement. However patient's family want to take him home with home health services. [facility] have bed availability - Time Spent with Patient Total time spent is greater than 50% in coordination of care (as documented) at patient's floor/unit and/or counseling patient: Internal Medicine: Result - Labs CBC & Chem 7: 08/19/18 04:30 08/19/18 04:30 Labs: Short CBC 08/19/18 Range/Units 04:30 WBC 7.6 (4.3-11.1) K/mcL Hgb 9.2 L (12.9-16.9) g/dL Hct 28.3 L (37.5-50.1) % Plt Count 181 (140-400) K/mcL BMP 08/19/18 04:30 Sodium 141 Potassium 4.0 Chloride 108 H Carbon Dioxide 22 L BUN 24 H Creatinine 1.01 Glucose 201 H Calcium 9.0 - ABG Interpretation ABG results: PT/INR, D-dimer PT 13.3 Seconds (9.4-12.1) H 08/17/18 06:01 Consult Discharge Plan - Plan [facility]errals: [facility] [Primary Care Provider] - Prescriptions: Cephalexin [Keflex] 500 mg PO TID #12 capsule Furosemide [Lasix] 20 mg PO DAILY #30 tablet (1) CAP (community acquired pneumonia) Qualifiers: Laterality: unspecified laterality Qualified Code(s): J18.9 - Pneumonia, unspecified organism (3) Altered mental status Qualifiers: Altered mental status type: unspecified Qualified Code(s): R41.82 - Altered mental status, unspecified (8) Diabetes Qualifiers: Diabetes mellitus type: type 2 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
[2018-08-19] MEDS: Furosemide 20 MG/2 ML VIAL IVP SCH ×2 (14:11→20:54)
--- NOTE | 2018-08-19 21:15 | Electrocardiograph Report ---
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
--- NOTE | 2018-08-19 21:20 | Electrocardiograph Report ---
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
[2018-08-20] MEDS: cefTRIAXone 1,000 MG in Water for inj. (sterile) 20 ML 10 ML IVPB SCH (02:22)
[2018-08-20] MEDS: Azithromycin 500 MG in D5% in Water 250 ML IVPB SCH (02:23)
[2018-08-20 04:17] LABS: Basophils % 0.3 %; Eosinophils # 0.3 K/mcL (0.0-0.6); Eosinophils % 4.5 %; Hematocrit 29.8 % (37.5-50.1); Hemoglobin 9.4 g/dL (12.9-16.9); Immature Granulocytes % 0.4 % (0-4); Lymphocytes % 27.7 %; Mean Corpuscular HGB Conc 31.5 g/dL (31.6-35.5); Mean Corpuscular Hemoglobin 27.3 pg (28.0-33.3); Mean Corpuscular Volume 86.6 fL (83.0-100.0); Mean Platelet Volume 9.3 fL (9.4-12.4); Monocytes # 0.9 K/mcL (0.0-1.3); Monocytes % 13.2 %; Neutrophils # 3.8 K/mcL (1.6-8.9); Platelet Count 189 K/mcL (140-400); Red Blood Count 3.44 M/mcL (4.19-5.50); Red Cell Distribution Width 18.8 % (11.5-14.5); Segmented Neutrophils % 53.9 %
[2018-08-20 04:37] LABS: BUN/Creatinine Ratio 25 (6-26); Blood Urea Nitrogen 31 mg/dL (8-23); Calcium 9.4 mg/dL (8.6-10.3); Carbon Dioxide 24 mEq/L (23-29); Chloride 103 mEq/L (98-107); Glucose 475 mg/dL (70-105); Magnesium 1.8 mg/dL (1.6-2.6); Osmolality,Calculated 313 (280-300); Potassium 4.2 mEq/L (3.5-5.1); Sodium 138 mEq/L (136-145); eGFR For Non-African Americans 57 (> 60)
[2018-08-20] MEDS: *HR* Heparin 5,000 UNIT/ML VIAL SQ SCH ×2 (05:48→16:47)
[2018-08-20] MEDS: Levothyroxine 25 MCG TABLET PO SCH (05:51)
[2018-08-20 08:02] VITALS: BP 151/80
[2018-08-20] MEDS: Multivit/Ca/Min/Fe/FA 1 TAB TABLET PO SCH (08:09)
[2018-08-20] MEDS: Insulin LISPRO 300 UNITS/3 ML VIAL SQ SCH ×3 (08:09→16:46)
[2018-08-20] MEDS: Cholecalciferol (D-3) 1,000 UNIT TABLET PO SCH (08:09)
[2018-08-20] MEDS: Aspirin Enteric Coated 81 MG Tablet PO SCH (08:09)
[2018-08-20] MEDS: Furosemide 20 MG/2 ML VIAL IVP SCH ×2 (08:09→16:46)
[2018-08-20] MEDS: Magnesium Oxide 400 MG TABLET PO SCH (08:09)
--- NOTE | 2018-08-20 10:19 | Physician Discharge Referral ---
Home Health/Hosp Referral Info Transfer to: Home Health Provider in Charge Post Discharge: PCP - Diagnosis (1) CAP (community acquired pneumonia) Status: Acute (2) Altered mental status Status: Acute (3) Pleural effusion Status: Acute (4) Acute kidney injury Status: Acute (5) DVT prophylaxis Status: Acute (6) Slurred speech Status: Acute (7) Diabetes Status: Acute - Respiratory Orders Smoking Cessation: Smoking cessation has been advised. For more information, call the [place] Tobacco Quit Line at 1-586-DLQY-NOW. - Services Needed Following services are medically necessary services: Nursing, Home Health Aide, Physical Therapy, Occupational Therapy - Transfer Medications Prescriptions: Cephalexin [Keflex] 500 mg PO TID #12 capsule Furosemide [Lasix] 20 mg PO DAILY #30 tablet Home Medications: Alendronate Sodium [Binosto] 70 mg PO QWEEK 11/02/17 [History] Aspirin Enteric Coated [Aspirin EC] 81 mg PO DAILY 11/02/17 [History] Insulin Glargine [Lantus] 13 unit SQ QPM 11/02/17 [History] Magnesium Oxide [Mag-Ox] 400 mg PO DAILY 11/02/17 [History] Multivit-Min/FA/Lycopen/Lutein [Adults 50+ Multivitamin Tablet] 1 tab PO DAILY 11/02/17 [History] Pantoprazole Sodium [Protonix] 40 mg PO DAILY 11/02/17 [History] Prazosin HCl [Minipress] 2 mg PO HS 11/02/17 [History] metFORMIN [Glucophage] 500 mg PO BIDWM 11/02/17 [History] traZODone [TraZODone] 50 mg PO HS 11/02/17 [History] Albuterol Sulfate [Albuterol Inhaler] 2 puff IH Q6HR PRN 08/17/18 [History] Ferrous Sulfate [Iron] 325 mg PO BID 08/17/18 [History] Aloe Vera/Collagen [Aloe [place] Cleansing Foam] 1 appl TP AD PRN 08/18/18 [History] Atorvastatin Calcium [Lipitor] 10 mg PO QPM 08/18/18 [History] Cholecalciferol (Vitamin D3) [Vitamin D3] 2,000 unit PO DAILY 08/18/18 [History] Levothyroxine [Synthroid] 25 mcg PO DAILY 08/18/18 [History] Lisinopril [Zestril] 2.5 mg PO DAILY 08/18/18 [History] Miconazole Nitrate [Aloe [place]] 1 appl TP BID PRN 08/18/18 [History] Nut.tx.gluc.intoler,Lac-Fr,Soy [Glucerna] 1 can PO TID 08/18/18 [History] Quetiapine Fumarate [Seroquel] 25 mg PO HS 08/18/18 [History] amLODIPine [Norvasc] 5 mg PO DAILY 08/18/18 [History] Cephalexin [Keflex] 500 mg PO TID #12 capsule 08/19/18 [Rx] Furosemide [Lasix] 20 mg PO DAILY #30 tablet 08/19/18 [Rx] Allergies/Adverse Reactions: Allergy/AdvReac Type Severity Reaction Status Date / Time adhesive AdvReac Rash Verified 11/02/17 00:15 Penicillins AdvReac See Verified 08/18/18 13:42 Comments Certification: Further, I certify that my clinical findings support that this patient is homebound (i.e. absences from home require considerable and taxing effort and are for medical reasons or taoism services or infrequently or short duration when for other reasons) because: Homebound Reason: Patient requires assistance of a person or device to safely leave home Attestation: My signature below is to certify that this patient is under my care and that I, or nurse practitioner, or a physician's medication assistant working with me, has a [id number] encounter with this patient.
[2018-08-23] MEDS ORDERED: ALENDRONATE SODIUM 70 MG PO SCH (04:57)
== END 2018-08-20 20:05 | disposition home health service (06) | DRG 193 ==
LOC: EMEROOARM 00:11 → 3BNU 00:11 → SUATTDRO 04:53
PROVIDERS: ADMIT Internal Medicine; ATTEND Family Medicine